=== PATIENT | female | born 1970 | race Caucasian/White ===

== ENCOUNTER 2018-05-13 06:28 | Day surgery (SDC) | payer OTHER ==
--- NOTE | 2018-05-11 14:47 | HP ---
DATE OF SURGERY: 05/13/2018 ADMISSION DIAGNOSIS: Symptomatic cholelithiasis. ANTICIPATED PROCEDURE: Laparoscopic cholecystectomy. HISTORY OF PRESENT ILLNESS: The patient has upper abdominal pain. Ultrasound positive. Seen and examined. Procedure discussed in detail and wished to proceed. PAST MEDICAL HISTORY: ALLERGIES: NONE. MEDICATIONS: Premarin, Effexor, Provigil, Plaquenil, piroxicam, Metformin. PAST SURGICAL HISTORY: Hysterectomy 2011. SOCIAL HISTORY: Half pack per day. ETOH negative. FAMILY HISTORY: Hypothyroidism, thyroid cancer, glaucoma, obesity, hypertension. REVIEW OF SYSTEMS: Hypothyroidism. Sleep apnea. PHYSICAL EXAMINATION: VITAL SIGNS: Normal. CHEST: Clear. COR: Regular. ABDOMEN: No palpable organomegaly or mass. IMPRESSION: Symptomatic cholelithiasis. PLAN: Laparoscopic cholecystectomy.
[2018-05-13] MEDS ORDERED: BRIDION 200MG/2ML IV ONE (06:29)
[2018-05-13] MEDS ORDERED: DIPRIVAN 200 MG/20 ML IV ONE (06:29)
[2018-05-13] MEDS ORDERED: MORPHINE SULFATE 10 MG/ML IV ONE (06:29)
[2018-05-13] MEDS ORDERED: SUBLIMAZE 250 MCG/5 ML IV ONE (06:29)
[2018-05-13] MEDS ORDERED: Quelicin Fliptop 200 MG/10 ML IV ONE (06:29)
[2018-05-13] MEDS ORDERED: Versed 2 MG/2 ML Injection IV ONE (06:29)
[2018-05-13] MEDS ORDERED: TORAdol 30 mg Injection IV ONE (06:29)
[2018-05-13] MEDS ORDERED: Zemuron 100 MG/10 ML IV ONE (06:29)
[2018-05-13] MEDS ORDERED: Lactated Ringers 1,000 ML IV SCH (06:30)
[2018-05-13] MEDS ORDERED: MEFOXIN 2 GM PREMIX** 2 GM/50 ML ML IV ONE (06:31)
[2018-05-13] MEDS ORDERED: Lactated Ringers 1,000 ML IV ONE ×2 (06:31→07:26)
[2018-05-13] MEDS ORDERED: MEFOXIN 2 GM PREMIX** 2 GM/50 ML ML IV SCH (07:00)
[2018-05-13] MEDS ORDERED: Sensorcaine 0.25% 10 ML ONE (07:25)
[2018-05-13] MEDS ORDERED: SUBLIMAZE 100 MCG/2 ML ONE (10:12)
[2018-05-13] MEDS ORDERED: MORPHINE SULFATE 4 MG INJ IV PRN (10:53)
[2018-05-13 11:34] VITALS: O2SAT 92
[2018-05-13 11:55] VITALS: BP 146/87; PULSE 76
--- NOTE | 2018-05-14 07:57 | OP ---
SURGERY DATE/TIME: 05/13/2018 0848 PREOPERATIVE DIAGNOSIS: Symptomatic cholelithiasis. POSTOPERATIVE DIAGNOSIS: Symptomatic cholelithiasis. PROCEDURE: Laparoscopic cholecystectomy. SURGEON: Dr. Louis. ANESTHESIA: General endotracheal tube - Trevin Singer CRNA. COMPLICATIONS: None. CONDITION: Stable. INDICATIONS: A patient with upper abdominal pain, ultrasound positive. Seen and examined. Procedure discussed in detail and wished to proceed. DESCRIPTION OF PROCEDURE AND FINDINGS: Taken to surgery. General anesthetic, routine prep and drape. Time out performed. Veress needle inserted about 1.5 inch above the umbilicus. Fairly large field. Three additional ports. Good visualization. She was markedly obese. Cystic artery defined and triply clipped. Cystic artery triply clipped. The gallbladder rolled out of gallbladder fossa. Gallbladder delivered down the umbilical port. It was necessary to take the stones out. There were a lot of large stones. Incision was distended some and the gallbladder delivered. The field was dry. It was closed with 3 sutures #0 Vicryl with hole closure device this was solid and was air tight. CO2 exsufflated. Skin closed with selene. Sterile dressing applied. The patient tolerated the procedure satisfactorily.
== END 2018-05-13 12:17 | disposition home or self-care (01) ==
LOC: SDC 06:28
PROVIDERS: ATTEND Surgery
DX: K80.20 Calculus of gallbladder without cholecystitis without obstruction (principal); E11.9 Type 2 diabetes mellitus without complications; Z79.4 Long term (current) use of insulin; G47.30 Sleep apnea, unspecified; E03.9 Hypothyroidism, unspecified; Z79.899 Other long term (current) drug therapy; Z80.8 Family history of malignant neoplasm of other organs or systems
CPT/HCPCS: 82962; 88304; J0330; J0694; J1885; J2250; J2270; J2704; J3010

== ENCOUNTER 2023-09-23 11:15 | Observation (INO) | payer OTHER ==
--- NOTE | 2023-09-23 11:38 | ERPHSYRPT ---
- History of Present Illness Time Seen by Provider: 09/23/23 11:38 Source: patient, family Exam Limitations: no limitations Patient Subjective Stated Complaint: ear infection dx thursday, placed on antibiotics. fever since thursday. shortness of breath today. Triage Nursing Assessment: . Physician History: This is an obese 53-year-old white female patient of Dr. Fragoso who presents with shortness of breath, cough and fever as well as headache arthralgias and myalgias. Patient was diagnosed with bilateral ear infections and placed on cefdinir. Today, she started having worsening shortness of breath and cough. She denies chest pain. Patient did take COVID test at home which were negative. Patient has a history of hyperlipidemia, hypertension, gastroesophageal reflux disease, diabetes, hypothyroidism, Sjorgens, COPD/asthma. Timing/Duration: worse Severity of Dyspnea-Max: moderate Severity of Dyspnea-Current: moderate Possible Cause: occasional episodes Modifying Factors: Improves With: activity, coughing Associated Symptoms: cough, No chest pain/discomfort Allergies/Adverse Reactions: No Known Drug Allergies Allergy (Verified 05/13/18 07:01) Home Medications: Metformin HCl 1000 mg [Glucophage 1000 MG] 1,000 mg PO DAILY 04/18/13 [History] Estrogens,Conjugated [Premarin] 0.625 mg PO DAILY 05/05/18 [History] Hydroxychloroquine Sulfate [Plaquenil] 200 mg PO BID 05/05/18 [History] Levothyroxine Sodium [Synthroid] 137 mcg PO DAILY 05/05/18 [History] modafiniL [Provigil] 200 mg PO BID 05/05/18 [History] Bupropion HCl Xl 150 mg [Wellbutrin XL 150 MG] 1 tablet PO DAILY 09/23/23 [History] Ergocalciferol (Vitamin D2) [Vitamin D2] 1 tablet PO DAILY 09/23/23 [History] Esomeprazole Magnesium 20 mg PO DAILY 09/23/23 [History] Metoprolol Succinate 25 mg Xl* [Toprol-Xl 25MG Tablets] 25 mg PO DAILY 09/23/23 [History] Rosuvastatin Calcium 1 tablet PO DAILY 09/23/23 [History] Hx Tetanus, Diphtheria Vaccination/Date Given: Yes Hx Influenza Vaccination/Date Given: Yes Hx Pneumococcal Vaccination/Date Given: No Travel Risk - International Travel Have you traveled outside of the country in past 3 weeks: No - Emerging Infectious Disease Are you exhibiting symptoms associated with any current EIDs: Yes Symptoms: Fever, Headaches/Body Aches/ - Review of Systems Constitutional: No Symptoms Eyes: No Symptoms Ears, Nose, & Throat: No Symptoms Respiratory: Cough, Dyspnea Cardiac: No Symptoms Abdominal/Gastrointestinal: No Symptoms Genitourinary Symptoms: No Symptoms Musculoskeletal: Arthralgias, Myalgias Skin: No Symptoms Neurological: No Symptoms Psychological: No Symptoms Endocrine: No Symptoms Hematologic/Lymphatic: No Symptoms Immunological/Allergic: No Symptoms All Other Systems: Reviewed and Negative - Past Medical History Pertinent Past Medical History: Yes Neurological History: No Pertinent History ENT History: No Pertinent History Cardiac History: No Pertinent History Respiratory History: Sleep Apnea, COPD, Asthma Endocrine Medical History: No Pertinent History Musculoskeletal History: Osteoarthritis GI Medical History: No Pertinent History History: No Pertinent History Psycho-Social History: No Pertinent History Female Reproductive Disorders: Fibroids, Abnormal Uterine Bleeding Other Medical History: Sjorgrens auto immune disorder - Past Surgical History Past Surgical History: Yes Neuro Surgical History: No Pertinent History Cardiac: No Pertinent History Respiratory: No Pertinent History Gastrointestinal: No Pertinent History Genitourinary: No Pertinent History Musculoskeletal: Orthopedic Surgery Female Surgical History: Hysterectomy, Other Other Surgical History: left carpel tunnel surgery 2014,Dx Lap 2011,hyster.2011, right foot stress fx with screws placed 2015 - Female History Hx Last Menstrual Period: hysterectomy Hx Now: No - Social History Smoking Status: Current every day smoker How long have you smoked: 20 Y Exposure to second hand smoke: No Drug Use: none Patient Lives Alone: No - Social Determinants of Health Will the patient participate in the screening: Yes Do you worry about a steady place to live?: No Do you have any problems with any of the following?: No known problems In the past 12 months,have you had to go without utilities?: No Transportation Issues: No Has anyone in your support network made you feel unsafe?: No Have you or anyone in your house had to go without enough: No - Nursing Vital Signs Nursing Vital Signs: Initial Vital Signs Temperature 103 F 09/23/23 11:18 Pulse Rate 98 H 09/23/23 11:18 Respiratory Rate 14 09/23/23 11:18 Blood Pressure 127/82 09/23/23 11:18 O2 Sat by Pulse Oximetry 91 L 09/23/23 11:18 Pain Scale Pain Intensity 0 - Physical Exam General Appearance: no apparent distress, alert, obese Eye Exam: PERRL/EOMI, eyes nml inspection Ears, Nose, Throat Exam: hearing grossly normal, normal ENT inspection, normal pharynx Neck Exam: normal inspection, non-tender, supple, full range of motion Respiratory Exam: normal breath sounds, lungs clear, airway intact, No chest tenderness, No respiratory distress Cardiovascular/Chest Exam: normal heart sounds, regular rate/rhythm Abdominal/Gastrointestinal Exam: soft, normal bowel sounds, No tenderness Rectal Exam: not done Extremity Exam: non-tender, normal range of motion, normal inspection, normal capillary refill, no calf tenderness, no pedal edema, pelvis stable Neurologic Exam: alert, oriented x 3, cooperative, bottle caser II-XII nml as tested, normal mood/affect, nml cerebellar function, nml station & gait, sensation nml Skin Exam: normal color, warm, dry Lymphatic Exam: No adenopathy SpO2 Interpretation: borderline oxygenation SpO2: 94 O2 Delivery: Room Air - Course Nursing assessment & vital signs reviewed: Yes EKG Interpreted by Me: RATE (98), Sinus Rhythm, NORMAL AXIS, NORMAL INTERVALS, NORMAL QRS, Other (No acute ischemic changes present.) Ordered Tests: Active Orders 24 hr Category Date Time Status EKG-ER Only STAT Care 09/23/23 11:40 Active IV Insertion STAT Care 09/23/23 11:40 Active Pulse Oximetry (ED) STAT Care 09/23/23 11:40 Active CHEST 1 VIEW (PORTABLE) Stat Exams 09/23/23 11:40 Completed CHEST WITH CONTRAST [CT] Stat Exams 09/23/23 12:49 Completed BLOOD CULTURE Stat Lab 09/23/23 11:40 Ordered CBC W DIFF Stat Lab 09/23/23 11:59 Completed CMP Stat Lab 09/23/23 11:59 Completed D-DIMER QUANTITATIVE Stat Lab 09/23/23 11:59 Completed Lactic Acid Stat Lab 09/23/23 11:40 Completed MAGNESIUM Stat Lab 09/23/23 11:59 Completed NT PRO BNPII Stat Lab 09/23/23 11:59 Completed PROTIME WITH INR Stat Lab 09/23/23 11:59 Completed TROPONIN Q4H Lab 09/23/23 11:45 Completed TROPONIN Q4H Lab 09/23/23 15:45 Ordered TROPONIN Q4H Lab 09/23/23 19:45 Ordered Respiratory Therapy Assessment DAILY RT 09/23/23 12:22 Active Medication Summary Discontinued Medications Generic Name Dose Route Start Last Admin Trade Name Griselda PRN Reason Stop Dose Admin Acetaminophen 650 mg 09/23/23 12:53 09/23/23 13:04 Acetaminophen 325 Mg Tablet PO 09/23/23 12:54 650 mg STAT ONE Administration Acetaminophen Confirm 09/23/23 12:59 Acetaminophen 325 Mg Tablet Administered 09/23/23 13:00 Dose 650 mg .ROUTE .STK-MED ONE Albuterol/Ipratropium Confirm 09/23/23 12:17 Ipratropium/Albuterol Sulfate 3 Ml Ampul.Neb Administered 09/23/23 12:18 Dose 3 ml IH .STK-MED ONE Albuterol/Ipratropium 3 ml 09/23/23 12:22 09/23/23 12:25 Ipratropium/Albuterol Sulfate 3 Ml Ampul.Neb IH 09/23/23 12:23 3 ml STAT ONE Administration Methylprednisolone Sodium 0 mg 09/23/23 12:53 09/23/23 13:05 Succinate 125 mg/ Sterile IV 09/23/23 12:54 125 mg Water 2 ml STAT ONE Administration Sodium Chloride 1,000 mls @ 999 mls/hr 09/23/23 12:39 09/23/23 14:12 Sodium Chloride 0.9% 1000 Ml IV 09/23/23 13:39 Infused .Q1H1M STA Infusion Levofloxacin/Dextrose 500 mg in 100 mls @ 100 mls/hr 09/23/23 12:40 09/23/23 14:12 Levofloxacin 500mg/100ml D5w IV 09/23/23 13:39 Infused STAT STA Infusion Sodium Chloride Confirm 09/23/23 12:43 Sodium Chloride 0.9% 1000 Ml Administered 09/23/23 12:44 Dose 1,000 mls @ ud .ROUTE .STK-MED ONE Levofloxacin/Dextrose Confirm 09/23/23 12:43 Levofloxacin 500mg/100ml D5w Administered 09/23/23 12:44 Dose 500 mg in 100 mls @ ud IV .STK-MED ONE Ibuprofen 600 mg 09/23/23 12:53 09/23/23 13:02 Ibuprofen 600 Mg Tablet PO 09/23/23 12:54 Not Given STAT ONE Ibuprofen Confirm 09/23/23 12:59 Ibuprofen 600 Mg Tablet Administered 09/23/23 13:00 Dose 600 mg .ROUTE .STK-MED ONE Methylprednisolone Sodium Succinate Confirm 09/23/23 12:59 Methylprednis Sod Succ 125 Mg/2 Ml Vial Administered 09/23/23 13:00 Dose 125 mg .ROUTE .STK-MED ONE Sterile Water Confirm 09/23/23 12:59 Water For Injection,Sterile 10 Ml Vial Administered 09/23/23 13:00 Dose 10 ml IJ .STK-MED ONE Lab/Rad Data: Laboratory Result Diagrams 09/23/23 11:59 09/23/23 11:59 Laboratory Results 09/23/23 09/23/23 09/23/23 Range/Units 12:40 11:59 11:59 WBC (3.98-10.04) x10^3/uL RBC (3.93-5.22) x10^6/uL Hgb (11.2-15.7) g/dL Hct (34.1-44.9) % MCV (79.4-94.8) fL MCH (25.6-32.2) pg MCHC (32.2-35.5) g/dL RDW (11.7-14.4) % Plt Count (182-369) x10^3/uL MPV (9.4-12.3) fL Gran % (34.0-71.1) % Immature Gran % (Auto) (0.001-0.429) % Nucleat RBC Rel Count (0.00-0.2) % Eos # (Auto) (0.04-0.36) x10^3/uL Immature Gran # (Auto) (0.001-0.031) x10^3u/L Absolute Lymphs (auto) (1.18-3.74) x10^3/uL Absolute Monos (auto) (0.24-0.86) x10^3/uL Absolute Nucleated RBC (0.00-0.012) x10^3u/L Lymphocytes % (19.3-51.7) % Monocytes % (4.7-12.5) % Eosinophils % (0.7-5.8) % Basophils % (0.1-1.2) % Absolute Granulocytes (1.56-6.13) x10^3/uL Basophils # (0.01-0.08) x10^3/uL PT 11.2 (9.4-12.5) SECONDS INR 1.03 (0.8-3.0) D-Dimer 1.44 H* (0.0-0.50) mg/L Sodium 134 L (135-145) mmol/L Potassium 3.8 (3.5-5.1) mmol/L Chloride 105 (98-107) mmol/L Carbon Dioxide 19 L (22-30) mmol/L Anion Gap 14.6 (5-15) MEQ/L BUN 24 H (7-17) mg/dL Creatinine 1.55 H (0.52-1.04) mg/dL Estimated GFR 40.1 ML/MIN Glucose 126 H (74-106) mg/dL Lactic Acid (0.4-2.0) Calcium 8.8 (8.4-10.2) mg/dL Magnesium 1.9 (1.6-2.3) mg/dL Total Bilirubin 0.40 (0.2-1.3) mg/dL AST 31 (14-36) U/L ALT 19 (0-35) U/L Alkaline Phosphatase 98 (38-126) U/L Troponin I (0.000-0.033) ng/mL NT-Pro-B Natriuret Pep 238 (<300) pg/mL Serum Total Protein 7.1 (6.3-8.2) g/dL Albumin 3.8 (3.5-5.0) g/dL Influenza Type A Ag NEGATIVE (NEGATIVE) Influenza Type B Ag NEGATIVE (NEGATIVE) RSV (PCR) NEGATIVE (NEGATIVE) SARS-CoV-2 (PCR) NEGATIVE (NEGATIVE) 09/23/23 09/23/23 09/23/23 Range/Units 11:59 11:45 11:40 WBC 10.9 H (3.98-10.04) x10^3/uL RBC 4.26 (3.93-5.22) x10^6/uL Hgb 11.9 (11.2-15.7) g/dL Hct 36.7 (34.1-44.9) % MCV 86.2 (79.4-94.8) fL MCH 27.9 (25.6-32.2) pg MCHC 32.4 (32.2-35.5) g/dL RDW 13.9 (11.7-14.4) % Plt Count 281 (182-369) x10^3/uL MPV 9.6 (9.4-12.3) fL Gran % 88.8 H (34.0-71.1) % Immature Gran % (Auto) 1.5 H (0.001-0.429) % Nucleat RBC Rel Count 0.0 (0.00-0.2) % Eos # (Auto) 0 L (0.04-0.36) x10^3/uL Immature Gran # (Auto) 0.16 H (0.001-0.031) x10^3u/L Absolute Lymphs (auto) 0.50 L (1.18-3.74) x10^3/uL Absolute Monos (auto) 0.51 (0.24-0.86) x10^3/uL Absolute Nucleated RBC 0.00 (0.00-0.012) x10^3u/L Lymphocytes % 4.6 L (19.3-51.7) % Monocytes % 4.7 (4.7-12.5) % Eosinophils % 0.0 L (0.7-5.8) % Basophils % 0.4 (0.1-1.2) % Absolute Granulocytes 9.72 H (1.56-6.13) x10^3/uL Basophils # 0.04 (0.01-0.08) x10^3/uL PT (9.4-12.5) SECONDS INR (0.8-3.0) D-Dimer (0.0-0.50) mg/L Sodium (135-145) mmol/L Potassium (3.5-5.1) mmol/L Chloride (98-107) mmol/L Carbon Dioxide (22-30) mmol/L Anion Gap (5-15) MEQ/L BUN (7-17) mg/dL Creatinine (0.52-1.04) mg/dL Estimated GFR ML/MIN Glucose (74-106) mg/dL Lactic Acid 1.3 (0.4-2.0) Calcium (8.4-10.2) mg/dL Magnesium (1.6-2.3) mg/dL Total Bilirubin (0.2-1.3) mg/dL AST (14-36) U/L ALT (0-35) U/L Alkaline Phosphatase (38-126) U/L Troponin I < 0.012 (0.000-0.033) ng/mL NT-Pro-B Natriuret Pep (<300) pg/mL Serum Total Protein (6.3-8.2) g/dL Albumin (3.5-5.0) g/dL Influenza Type A Ag (NEGATIVE) Influenza Type B Ag (NEGATIVE) RSV (PCR) (NEGATIVE) SARS-CoV-2 (PCR) (NEGATIVE) - Progress Progress: improved, re-examined Air Movement: good Progress Note: 09/23/23 12:22 Chest x-ray was interpreted by the radiologist and I reviewed the impression. Impression states new bilateral patchy airspace disease right side greater than left. 09/23/23 12:46 My medical decision making and the assignment of moderate complexity to this patient's medical issue today is based on review of the patient's past medical history, review the patient's medication list, review patient drug allergy list, history present illness and physical findings on examination. The workup in this patient includes placement of intravenous line, CBC, CMP, blood cultures, RT evaluation management, BNP, D-dimer level, twelve-lead EKG, chest x-ray. Differential diagnosis includes but is not limited to pneumonia, viral illness, myocardial infarction, pleural effusions, pulmonary embolism, arrhythmia 09/23/23 14:20 Based on the laboratory data which I interpreted, the patient does not have an acute, emergent medical issue. CT scan of the chest with contrast shows no obvious pulmonary embolus. However there is some optimal study based on suboptimal opacification. There is diffuse bilateral patchy consolidating airspace disease with tiny right effusion present. 09/23/23 15:00 I spoke with telehospitalist Dr. Gupta. I reviewed the patient history, chief complaint, physical exam findings, and workup results with her. She agrees to place this patient in observation. Blood Culture(s) Obtained: Yes Antibiotics given: Yes Counseled pt/family regarding: lab results, diagnosis, rad results Medical Desision Making - Discussion of managment Care discussed with:: hospitalist Reviewed:: Test results, Need for additional workup Agreed on:: place in obs - Diagnostic Testing Diagnostic test were ordered, analyzed, and reviewed by me: Yes Radiological Interpretation: Reviewed by me, Teleradiologist Report - Risk of complications The pt has a high risk of morbidity or mortality based on: Decision regarding hospitilization or escalation of hosp level of care - Departure Departure Disposition: Observation Clinical Impression: Pneumonia, Hypoxia, Fever, Sepsis Condition: Fair Critical Care Time: Yes Critical Care Time(excluding separately billable procedures): Critical 30-74 mins (40) Referrals: ANDREW FRAGOSO MD [Primary Care Provider] - Follow up/PCP as directed
--- NOTE | 2023-09-23 12:02 | XRAY ---
Indication: Short of breath. Comparison: September 18, 2017 Portable chest demonstrates new bilateral patchy airspace disease, right greater than left. Heart not enlarged. Bony thorax intact.
[2023-09-23 12:08] LABS: Absolute Neutrophil Ct (ANC) 9.72 x10^3/uL (1.56-6.13); BASOPHIL % 0.4 % (0.1-1.2); Basophil (Absolute #) 0.04 x10^3/uL (0.01-0.08); Eosinophil (Absolute #) 0 x10^3/uL (0.04-0.36); Hematocrit 36.7 % (34.1-44.9); Hemoglobin 11.9 g/dL (11.2-15.7); IMMATURE GRAN # 0.16 x10^3u/L (0.001-0.031); IMMATURE GRAN % 1.5 % (0.001-0.429); Lymphocytes % 4.6 % (19.3-51.7); Mean Cell Volume 86.2 fL (79.4-94.8); Mean Corpuscular Hemoglobin 27.9 pg (25.6-32.2); Mean Corpuscular Hgb Concent. 32.4 g/dL (32.2-35.5); Mean Platelet Volume 9.6 fL (9.4-12.3); Monocyte (Absolute #) 0.51 x10^3/uL (0.24-0.86); Monocytes % 4.7 % (4.7-12.5); Neutrophil % 88.8 % (34.0-71.1); Platelet Count 281 x10^3/uL (182-369); Red Blood Count 4.26 x10^6/uL (3.93-5.22); Red Cell Distribution Width 13.9 % (11.7-14.4); White Blood Count 10.9 x10^3/uL (3.98-10.04)
[2023-09-23] MEDS ORDERED: DUONEB 0.5-3 MG/3 ml Neb IH ONE (12:17)
[2023-09-23] MEDS: DUONEB 0.5-3 MG/3 ml Neb IH ONE (12:25)
[2023-09-23 12:28] LABS: ALBUMIN 3.8 g/dL (3.5-5.0); ANION GAP 14.6 MEQ/L (5-15); BILIRUBIN,TOTAL 0.4 mg/dL (0.2-1.3); Calcium 8.8 mg/dL (8.4-10.2); Creatinine 1 1.55 mg/dL (0.52-1.04); EST GLOMERULAR FILTRATION RATE 40.1 ML/MIN; MAGNESIUM 1.9 mg/dL (1.6-2.3); Potassium 3.8 mmol/L (3.5-5.1); Total Protein 7.1 g/dL (6.3-8.2)
[2023-09-23 12:39] LABS: INR 1.03 (0.8-3.0); PROTIME 11.2 SECONDS (9.4-12.5)
[2023-09-23 12:42] LABS: D-DIMER QUANTITATIVE 1.44 mg/L (0.0-0.50)
[2023-09-23] MEDS ORDERED: Levofloxacin 500MG/100ML D5W 500 MG/100 ML BAG IV ONE (12:43)
[2023-09-23] MEDS ORDERED: Sodium Chloride 0.9% 1000 ML 1,000 ML ONE (12:43)
[2023-09-23] MEDS: Sodium Chloride 0.9% 1000 ML 1,000 ML IV STA (12:48)
[2023-09-23] MEDS: Levofloxacin 500MG/100ML D5W 500 MG/100 ML BAG IV STA (12:50)
[2023-09-23] MEDS ORDERED: MOTRIN 600 MG ONE (12:59)
[2023-09-23] MEDS ORDERED: solu-MEDROL ONE (12:59)
[2023-09-23] MEDS ORDERED: TYLENOL 325 MG ONE (12:59)
[2023-09-23] MEDS ORDERED: Sterile H2O 10 ml IJ ONE (12:59)
[2023-09-23] MEDS: MOTRIN 600 MG PO ONE (13:02)
[2023-09-23] MEDS: TYLENOL 325 MG PO ONE (13:04)
[2023-09-23] MEDS: solu-MEDROL 125 MG, Sterile H2O 10 ml 2 ML IV ONE (13:05)
[2023-09-23 13:33] LABS: INFLUENZA A NEGATIVE (NEGATIVE); INFLUENZA B NEGATIVE (NEGATIVE); RESPIRATORY SYNCTIAL VIRUS NEGATIVE (NEGATIVE); SARS-CoV-2 Xpert Express NEGATIVE (NEGATIVE)
--- NOTE | 2023-09-23 14:02 | XRAY ---
Indication: Hypoxia. Short of breath. Elevated d-dimer. Multiple contiguous axial images obtained through the chest using 100 cc Isovue 370 contrast and PE protocol. Comparison: None Suboptimal opacification pulmonary arteries and respiration artifact limits evaluation for pulmonary embers. No obvious pulmonary embolus. Heart not enlarged. Aorta is normal in course and caliber. Tiny subcarinal and left infrahilar calcified node. No pathologic mediastinal/hilar lymphadenopathy. Small hiatal hernia. Lungs demonstrates diffuse bilateral patchy consolidating airspace disease with tiny right effusion. Bony thorax intact with mild degenerative changes throughout the spine. Limited upper abdomen demonstrates fatty liver, 13 cm splenomegaly, and cholecystectomy clips. Impression: 1. Pulmonary embolus evaluation limited due to suboptimal contrast opacification and respiration artifact. No obvious pulmonary embolus. 2. Diffuse bilateral patchy consolidating airspace disease with tiny right effusion. 3. Incidental tiny including hiatal hernia, degenerative spondylosis, fatty liver, splenomegaly, and old granulomatous disease.
[2023-09-23] MEDS ORDERED: Zofran 4 MG/2 ML VIAL IV PRN (15:29)
[2023-09-23 15:38] LABS: Slide Review 1 YES
--- NOTE | 2023-09-23 16:01 | PCM.HP ---
<LARRY BURCIAGA - Last Filed: 09/23/23 15:54> History of Present Illness - Chief Complaint Chief Complaint: Dyspnea, fever, cough Date: 09/23/23 History of Present Illness: is a 53 year old female with a pmhx of MINDA, HLD, HTN, GERD, hypothyroid, COPD/asthma, Aflutter (metoprolol), insulin resistance, and Sjorgrens who presented to ED 09/23/23 with complaints of progressive dyspnea and cough. Patient reports fever with TMax of 103 since this past Thursday, weakness, and a non-productive cough. She was seen as OP on 09/21/23 and was diagnosed with a bilateral ear infection and placed on cefdinir. Patient states she was prompted to report to the ED today when she was unable to resolve her fever, was short of breath with exertion, and became so weak she was having difficulty performing ADL's. In ED, patient tachycardic, tachypneic, febrile with temp at 103, and spo2 at 91% on RA. Chest CT demonstrates diffuse bilateral patchy consolidating airspace disease with a tiny right effusion. No PE. Lab findings remarkable for mild leukocytosis with WBC at 10.9, Ddimer at 1.44 (no PE on CT), mild hyponatremia at 134, Co2 at 19, TUAN with creat at 1.55 (baseline 1.3). Received levofloxacin, solumedrol, DuoNebs, and fluid bolus in ED. - Review of Systems Constitutional: Fever, Chills, Weakness Eyes: No Symptoms Ears, Nose, & Throat: Ear Pain Respiratory: Cough, Short Of Breath Cardiac: No Symptoms Abdominal/Gastrointestinal: Appetite Changes (poor appetite) Genitourinary Symptoms: No Symptoms Musculoskeletal: No Symptoms Skin: No Symptoms Neurological: No Symptoms Psychological: No Symptoms Endocrine: No Symptoms Hematologic/Lymphatic: No Symptoms Immunological/Allergic: No Symptoms Medications & Allergies Home Medications: Home Medication List Metformin HCl 1000 mg [Glucophage 1000 MG] 1,000 mg PO DAILY 04/18/13 [History Confirmed 09/23/23] Estrogens,Conjugated [Premarin] 0.625 mg PO DAILY 05/05/18 [History Confirmed 09/23/23] Hydroxychloroquine Sulfate [Plaquenil] 200 mg PO BID 05/05/18 [History Confirmed 09/23/23] Levothyroxine Sodium [Synthroid] 137 mcg PO DAILY 05/05/18 [History Confirmed 09/23/23] modafiniL [Provigil] 200 mg PO BID 05/05/18 [History Confirmed 09/23/23] Bupropion HCl Xl 150 mg [Wellbutrin XL 150 MG] 150 mg PO DAILY 09/23/23 [History Confirmed 09/23/23] Cefdinir 300 mg PO BID 09/23/23 [History Confirmed 09/23/23] Diclofenac Sodium [Voltaren Arthritis Pain] 1 applic TOP DAILY 09/23/23 [History Confirmed 09/23/23] Ergocalciferol (Vitamin D2) [Vitamin D2] 50,000 units PO WEEKLY 09/23/23 [History Confirmed 09/23/23] Esomeprazole Magnesium 20 mg PO DAILY 09/23/23 [History Confirmed 09/23/23] Metoprolol Succinate 25 mg Xl* [Toprol-Xl 25MG Tablets] 25 mg PO DAILY 09/23/23 [History Confirmed 09/23/23] Rosuvastatin Calcium 10 mg PO DAILY 09/23/23 [History Confirmed 09/23/23] Allergies/Adverse Reactions: Allergies Allergy/AdvReac Type Severity Reaction Status Date / Time No Known Drug Allergies Allergy Verified 05/13/18 07:01 - Past Medical History Past Medical History: Yes Neurological History: No Pertinent History ENT History: No Pertinent History Cardiac History: High Cholesterol Respiratory History: Sleep Apnea, COPD, Asthma Endocrine Medical History: No Pertinent History Musculoskelatal History: Osteoarthritis GI Medical History: No Pertinent History History: No Pertinent History Pyscho-Social History: No Pertinent History Reproductive Disorders: Fibroids, Abnormal Uterine Bleeding Comment: Sjorgrens auto immune disorder, insulin resistant - Female History Hx Last Menstrual Period: hysterectomy Are you now?: No - Past Surgical History Past Surgical History: Yes Neuro Surgical History: No Pertinent History Cardiac History: No Pertinent History Respiratory Surgery: No Pertinent History GI Surgical History: No Pertinent History Genitourinary Surgical Hx: No Pertinent History Musculskeletal Surgical Hx: Orthopedic Surgery Female Surgical History: Hysterectomy, Other Other Surgical History: left carpel tunnel surgery 2014,Dx Lap 2011,hyster.[email or web address], right foot stress fx with screws placed 2015 - Social History Smoking Status: Current every day smoker How long have you smoked: 20 Y Exposure to second hand smoke: No Alcohol: Rarely Drug Use: none - Social Determinants of Health Will the patient participate in the screening: Yes Do you worry about a steady place to live?: No Do you have any problems with any of the following?: No known problems In the past 12 months,have you had to go without utilities?: No Have you or anyone in your house had to go without enough: No Transportation Issues: No Has anyone in your support network made you feel unsafe?: No - Physical Exam Vital Signs: Vital Signs - 24 hr Temp Pulse Resp BP BP Pulse Ox 09/23/23 15:37 99.6 F 89 18 105/55 92 L 09/23/23 15:05 94 L 09/23/23 14:01 101/55 95 09/23/23 14:00 94 L 09/23/23 13:50 93 L 09/23/23 13:45 99.4 F 95 09/23/23 13:01 96 H 27 H 135/28 99 09/23/23 13:00 95 H 24 97 09/23/23 12:50 93 H 20 96 09/23/23 12:40 96 H 23 94 L 09/23/23 12:33 96 H 23 93 L 09/23/23 12:22 92 H 28 H 94 L 09/23/23 12:09 91 H 25 H 136/66 95 09/23/23 12:00 92 H 28 H 94 L 09/23/23 11:53 93 H 26 H 94 L 09/23/23 11:42 91 L 09/23/23 11:30 93 H 27 H 120/78 95 09/23/23 11:18 103 F 98 H 18 127/82 94 L General Appearance: no apparent distress Neurologic Exam: alert, oriented x 3, cooperative Eye Exam: PERRL/EOMI Ears, Nose, Throat Exam: normal ENT inspection Neck Exam: normal inspection Respiratory Exam: crackles/rales Cardiovascular Exam: regular rate/rhythm, normal heart sounds Gastrointestinal/Abdomen Exam: normal bowel sounds Pelvic Exam: not done Rectal Exam: deferred Back Exam: normal inspection Extremity Exam: normal inspection Skin Exam: normal color Results - Labs Lab/Micro Results: Lab Results-Last 24 Hours 09/23/23 09/23/23 09/23/23 Range/Units 11:40 11:45 11:59 WBC 10.9 H (3.98-10.04) x10^3/uL RBC 4.26 (3.93-5.22) x10^6/uL Hgb 11.9 (11.2-15.7) g/dL Hct 36.7 (34.1-44.9) % MCV 86.2 (79.4-94.8) fL MCH 27.9 (25.6-32.2) pg MCHC 32.4 (32.2-35.5) g/dL RDW 13.9 (11.7-14.4) % Plt Count 281 (182-369) x10^3/uL MPV 9.6 (9.4-12.3) fL Gran % 88.8 H (34.0-71.1) % Immature Gran % (Auto) 1.5 H (0.001-0.429) % Nucleat RBC Rel Count 0.0 (0.00-0.2) % Eos # (Auto) 0 L (0.04-0.36) x10^3/uL Immature Gran # (Auto) 0.16 H (0.001-0.031) x10^3u/L Absolute Lymphs (auto) 0.50 L (1.18-3.74) x10^3/uL Absolute Monos (auto) 0.51 (0.24-0.86) x10^3/uL Absolute Nucleated RBC 0.00 (0.00-0.012) x10^3u/L Lymphocytes % 4.6 L (19.3-51.7) % Monocytes % 4.7 (4.7-12.5) % Eosinophils % 0.0 L (0.7-5.8) % Basophils % 0.4 (0.1-1.2) % Absolute Granulocytes 9.72 H (1.56-6.13) x10^3/uL Basophils # 0.04 (0.01-0.08) x10^3/uL PT (9.4-12.5) SECONDS INR (0.8-3.0) D-Dimer (0.0-0.50) mg/L Sodium (135-145) mmol/L Potassium (3.5-5.1) mmol/L Chloride (98-107) mmol/L Carbon Dioxide (22-30) mmol/L Anion Gap (5-15) MEQ/L BUN (7-17) mg/dL Creatinine (0.52-1.04) mg/dL Estimated GFR ML/MIN Glucose (74-106) mg/dL Lactic Acid 1.3 (0.4-2.0) Calcium (8.4-10.2) mg/dL Magnesium (1.6-2.3) mg/dL Total Bilirubin (0.2-1.3) mg/dL AST (14-36) U/L ALT (0-35) U/L Alkaline Phosphatase (38-126) U/L Troponin I < 0.012 (0.000-0.033) ng/mL NT-Pro-B Natriuret Pep (<300) pg/mL Serum Total Protein (6.3-8.2) g/dL Albumin (3.5-5.0) g/dL Influenza Type A Ag (NEGATIVE) Influenza Type B Ag (NEGATIVE) RSV (PCR) (NEGATIVE) SARS-CoV-2 (PCR) (NEGATIVE) Slides for Path Review YES 09/23/23 09/23/23 09/23/23 Range/Units 11:59 11:59 12:40 WBC (3.98-10.04) x10^3/uL RBC (3.93-5.22) x10^6/uL Hgb (11.2-15.7) g/dL Hct (34.1-44.9) % MCV (79.4-94.8) fL MCH (25.6-32.2) pg MCHC (32.2-35.5) g/dL RDW (11.7-14.4) % Plt Count (182-369) x10^3/uL MPV (9.4-12.3) fL Gran % (34.0-71.1) % Immature Gran % (Auto) (0.001-0.429) % Nucleat RBC Rel Count (0.00-0.2) % Eos # (Auto) (0.04-0.36) x10^3/uL Immature Gran # (Auto) (0.001-0.031) x10^3u/L Absolute Lymphs (auto) (1.18-3.74) x10^3/uL Absolute Monos (auto) (0.24-0.86) x10^3/uL Absolute Nucleated RBC (0.00-0.012) x10^3u/L Lymphocytes % (19.3-51.7) % Monocytes % (4.7-12.5) % Eosinophils % (0.7-5.8) % Basophils % (0.1-1.2) % Absolute Granulocytes (1.56-6.13) x10^3/uL Basophils # (0.01-0.08) x10^3/uL PT 11.2 (9.4-12.5) SECONDS INR 1.03 (0.8-3.0) D-Dimer 1.44 H* (0.0-0.50) mg/L Sodium 134 L (135-145) mmol/L Potassium 3.8 (3.5-5.1) mmol/L Chloride 105 (98-107) mmol/L Carbon Dioxide 19 L (22-30) mmol/L Anion Gap 14.6 (5-15) MEQ/L BUN 24 H (7-17) mg/dL Creatinine 1.55 H (0.52-1.04) mg/dL Estimated GFR 40.1 ML/MIN Glucose 126 H (74-106) mg/dL Lactic Acid (0.4-2.0) Calcium 8.8 (8.4-10.2) mg/dL Magnesium 1.9 (1.6-2.3) mg/dL Total Bilirubin 0.40 (0.2-1.3) mg/dL AST 31 (14-36) U/L ALT 19 (0-35) U/L Alkaline Phosphatase 98 (38-126) U/L Troponin I (0.000-0.033) ng/mL NT-Pro-B Natriuret Pep 238 (<300) pg/mL Serum Total Protein 7.1 (6.3-8.2) g/dL Albumin 3.8 (3.5-5.0) g/dL Influenza Type A Ag NEGATIVE (NEGATIVE) Influenza Type B Ag NEGATIVE (NEGATIVE) RSV (PCR) NEGATIVE (NEGATIVE) SARS-CoV-2 (PCR) NEGATIVE (NEGATIVE) Slides for Path Review - Radiology Impressions Radiology Exams & Impressions: Radiology Procedures Category Date Time Status CHEST 1 VIEW (PORTABLE) Stat Exams 09/23/23 11:40 Completed CHEST WITH CONTRAST [CT] Stat Exams 09/23/23 12:49 Completed - Other Procedures and Tests Respiratory Therapy 09/23/23 15:29 EKG REPEAT IN AM Oxygen Nasal Cannula 2 lpm Respiratory Therapy Consult ONCE Assessment/Plan (1) Sepsis Current Visit: Yes Status: Acute Assessment & Plan: -Most likely multifactoral with recent otitis media and pneumonia- OP failure with cefdinir -Meets criteria with tachycardia, tachypnea, fever, and known source of infection -Received 1L fluid bolus in ED, LA WNL - will continue fluids at 125ml/hr -CT consistent with bilateral pneumonia -Levofloxacin started in ED, will continue with Zosyn -MRSA nasal swab - if positive add vancomycin -Supplemental oxygen with spo2 goal > 92% -PCT, UA -ABG if significant hypoxia/lethargy (2) Pneumonia Current Visit: Yes Status: Acute Assessment & Plan: - CT consistent with bilateral pneumonia -MRSA swab -supplemental oxygen with spo2 goal > 92% - on 2L now, baseline RA -sputum culture -Resp viral panel negative -bcult pending -Levaquin started in ED- OP failure with cefdinir- will continue with Zosyn Code(s): J18.9 - PNEUMONIA, UNSPECIFIED ORGANISM (3) Hyponatremia Current Visit: Yes Status: Acute Assessment & Plan: -Mild -IVF -continue to monitor renal/lytes daily Code(s): E87.1 - HYPO-OSMOLALITY AND HYPONATREMIA (4) Insulin resistance Current Visit: Yes Status: Acute Assessment & Plan: -On metformin - hold for now due to contrast CT, no DM Code(s): E88.819 - INSULIN RESISTANCE, UNSPECIFIED (5) Atrial flutter Current Visit: Yes Status: Acute Code(s): I48.92 - UNSPECIFIED ATRIAL FLUTTER (6) Acute on chronic renal failure Current Visit: Yes Status: Acute Assessment & Plan: -baseline creat around 1.3, today at 1.55 -continue IVF -Avoid nephrotoxic medications ALEJANDRA/ARB/NSAIDS -Monitor renal/lytes daily Code(s): N17.9 - ACUTE KIDNEY FAILURE, UNSPECIFIED; N18.9 - CHRONIC KIDNEY DISEASE, UNSPECIFIED (7) COPD exacerbation Current Visit: Yes Status: Acute Assessment & Plan: -RA at baseline -Supplemental oxygen as needed to maintain spo2 >92% -solumedrol -RT eval - Nebs/ INH -abx -ABG/BIPAP as needed Code(s): J44.1 - CHRONIC OBSTRUCTIVE PULMONARY DISEASE W (ACUTE) EXACERBATION (8) MINDA (obstructive sleep apnea) Current Visit: Yes Status: Acute Assessment & Plan: -continue CPAP Code(s): G47.33 - OBSTRUCTIVE SLEEP APNEA (ADULT) (PEDIATRIC) (9) HTN (hypertension) Current Visit: Yes Status: Acute Assessment & Plan: -stable - continue home meds, monitor closely for hypotension VTE: lovenox PPI: protonix Dispo: 1-2 days Code Status: Full code The entirety of this encounter was performed via Telemedicine" This visit was performed using real-time audio and video connection between my location and thepatients locationwith the assistance of a surrogateat the patients location. Written or verbal consent was obtained from the patient/guardian to perform this visit usingsynchrQuest Discoverytelemedicine technology. Any patient questions regarding the telemedicine interaction were answered. Code(s): I10 - ESSENTIAL (PRIMARY) HYPERTENSION Telemedicine Encounter - Telemedicine Encounter Telemedicine Encounter: The entirety of this encounter was performed via Telemedicine" <MANAS BARNARD - Last Filed: 09/23/23 23:03> History of Present Illness - Chief Complaint History of Present Illness: is a 53 year old female. - Physical Exam Vital Signs: Vital Signs - 24 hr Temp Pulse Resp BP BP Pulse Ox 09/23/23 20:00 96.6 F 77 17 114/62 93 L 09/23/23 19:51 74 16 94 L 09/23/23 15:44 99.6 F 89 20 105/55 92 L 09/23/23 15:37 99.6 F 89 18 105/55 92 L 09/23/23 15:05 94 L 09/23/23 14:01 101/55 95 09/23/23 14:00 94 L 09/23/23 13:50 93 L 09/23/23 13:45 99.4 F 95 09/23/23 13:01 96 H 27 H 135/28 99 09/23/23 13:00 95 H 24 97 09/23/23 12:50 93 H 20 96 09/23/23 12:40 96 H 23 94 L 09/23/23 12:33 96 H 23 93 L 09/23/23 12:22 92 H 28 H 94 L 09/23/23 12:09 91 H 25 H 136/66 95 09/23/23 12:00 92 H 28 H 94 L 09/23/23 11:53 93 H 26 H 94 L 09/23/23 11:42 91 L 09/23/23 11:30 93 H 27 H 120/78 95 09/23/23 11:18 103 F 98 H 18 127/82 94 L Results - Labs Lab/Micro Results: Lab Results-Last 24 Hours 09/23/23 09/23/23 09/23/23 Range/Units 11:40 11:45 11:59 WBC 10.9 H (3.98-10.04) x10^3/uL RBC 4.26 (3.93-5.22) x10^6/uL Hgb 11.9 (11.2-15.7) g/dL Hct 36.7 (34.1-44.9) % MCV 86.2 (79.4-94.8) fL MCH 27.9 (25.6-32.2) pg MCHC 32.4 (32.2-35.5) g/dL RDW 13.9 (11.7-14.4) % Plt Count 281 (182-369) x10^3/uL MPV 9.6 (9.4-12.3) fL Gran % 88.8 H (34.0-71.1) % Immature Gran % (Auto) 1.5 H (0.001-0.429) % Nucleat RBC Rel Count 0.0 (0.00-0.2) % Eos # (Auto) 0 L (0.04-0.36) x10^3/uL Immature Gran # (Auto) 0.16 H (0.001-0.031) x10^3u/L Absolute Lymphs (auto) 0.50 L (1.18-3.74) x10^3/uL Absolute Monos (auto) 0.51 (0.24-0.86) x10^3/uL Absolute Nucleated RBC 0.00 (0.00-0.012) x10^3u/L Lymphocytes % 4.6 L (19.3-51.7) % Monocytes % 4.7 (4.7-12.5) % Eosinophils % 0.0 L (0.7-5.8) % Basophils % 0.4 (0.1-1.2) % Absolute Granulocytes 9.72 H (1.56-6.13) x10^3/uL Basophils # 0.04 (0.01-0.08) x10^3/uL PT (9.4-12.5) SECONDS INR (0.8-3.0) D-Dimer (0.0-0.50) mg/L Sodium (135-145) mmol/L Potassium (3.5-5.1) mmol/L Chloride (98-107) mmol/L Carbon Dioxide (22-30) mmol/L Anion Gap (5-15) MEQ/L BUN (7-17) mg/dL Creatinine (0.52-1.04) mg/dL Estimated GFR ML/MIN Glucose (74-106) mg/dL POC Glucometer (74 to 106) mg/dL Lactic Acid 1.3 (0.4-2.0) Calcium (8.4-10.2) mg/dL Magnesium (1.6-2.3) mg/dL Total Bilirubin (0.2-1.3) mg/dL AST (14-36) U/L ALT (0-35) U/L Alkaline Phosphatase (38-126) U/L Troponin I < 0.012 (0.000-0.033) ng/mL NT-Pro-B Natriuret Pep (<300) pg/mL Serum Total Protein (6.3-8.2) g/dL Albumin (3.5-5.0) g/dL Nasal Screen MRSA (PCR) (NEGATIVE) Influenza Type A Ag (NEGATIVE) Influenza Type B Ag (NEGATIVE) RSV (PCR) (NEGATIVE) SARS-CoV-2 (PCR) (NEGATIVE) Slides for Path Review YES 09/23/23 09/23/23 09/23/23 Range/Units 11:59 11:59 12:40 WBC (3.98-10.04) x10^3/uL RBC (3.93-5.22) x10^6/uL Hgb (11.2-15.7) g/dL Hct (34.1-44.9) % MCV (79.4-94.8) fL MCH (25.6-32.2) pg MCHC (32.2-35.5) g/dL RDW (11.7-14.4) % Plt Count (182-369) x10^3/uL MPV (9.4-12.3) fL Gran % (34.0-71.1) % Immature Gran % (Auto) (0.001-0.429) % Nucleat RBC Rel Count (0.00-0.2) % Eos # (Auto) (0.04-0.36) x10^3/uL Immature Gran # (Auto) (0.001-0.031) x10^3u/L Absolute Lymphs (auto) (1.18-3.74) x10^3/uL Absolute Monos (auto) (0.24-0.86) x10^3/uL Absolute Nucleated RBC (0.00-0.012) x10^3u/L Lymphocytes % (19.3-51.7) % Monocytes % (4.7-12.5) % Eosinophils % (0.7-5.8) % Basophils % (0.1-1.2) % Absolute Granulocytes (1.56-6.13) x10^3/uL Basophils # (0.01-0.08) x10^3/uL PT 11.2 (9.4-12.5) SECONDS INR 1.03 (0.8-3.0) D-Dimer 1.44 H* (0.0-0.50) mg/L Sodium 134 L (135-145) mmol/L Potassium 3.8 (3.5-5.1) mmol/L Chloride 105 (98-107) mmol/L Carbon Dioxide 19 L (22-30) mmol/L Anion Gap 14.6 (5-15) MEQ/L BUN 24 H (7-17) mg/dL Creatinine 1.55 H (0.52-1.04) mg/dL Estimated GFR 40.1 ML/MIN Glucose 126 H (74-106) mg/dL POC Glucometer (74 to 106) mg/dL Lactic Acid (0.4-2.0) Calcium 8.8 (8.4-10.2) mg/dL Magnesium 1.9 (1.6-2.3) mg/dL Total Bilirubin 0.40 (0.2-1.3) mg/dL AST 31 (14-36) U/L ALT 19 (0-35) U/L Alkaline Phosphatase 98 (38-126) U/L Troponin I (0.000-0.033) ng/mL NT-Pro-B Natriuret Pep 238 (<300) pg/mL Serum Total Protein 7.1 (6.3-8.2) g/dL Albumin 3.8 (3.5-5.0) g/dL Nasal Screen MRSA (PCR) (NEGATIVE) Influenza Type A Ag NEGATIVE (NEGATIVE) Influenza Type B Ag NEGATIVE (NEGATIVE) RSV (PCR) NEGATIVE (NEGATIVE) SARS-CoV-2 (PCR) NEGATIVE (NEGATIVE) Slides for Path Review 09/23/23 09/23/23 09/23/23 Range/Units 15:35 19:35 20:15 WBC (3.98-10.04) x10^3/uL RBC (3.93-5.22) x10^6/uL Hgb (11.2-15.7) g/dL Hct (34.1-44.9) % MCV (79.4-94.8) fL MCH (25.6-32.2) pg MCHC (32.2-35.5) g/dL RDW (11.7-14.4) % Plt Count (182-369) x10^3/uL MPV (9.4-12.3) fL Gran % (34.0-71.1) % Immature Gran % (Auto) (0.001-0.429) % Nucleat RBC Rel Count (0.00-0.2) % Eos # (Auto) (0.04-0.36) x10^3/uL Immature Gran # (Auto) (0.001-0.031) x10^3u/L Absolute Lymphs (auto) (1.18-3.74) x10^3/uL Absolute Monos (auto) (0.24-0.86) x10^3/uL Absolute Nucleated RBC (0.00-0.012) x10^3u/L Lymphocytes % (19.3-51.7) % Monocytes % (4.7-12.5) % Eosinophils % (0.7-5.8) % Basophils % (0.1-1.2) % Absolute Granulocytes (1.56-6.13) x10^3/uL Basophils # (0.01-0.08) x10^3/uL PT (9.4-12.5) SECONDS INR (0.8-3.0) D-Dimer (0.0-0.50) mg/L Sodium (135-145) mmol/L Potassium (3.5-5.1) mmol/L Chloride (98-107) mmol/L Carbon Dioxide (22-30) mmol/L Anion Gap (5-15) MEQ/L BUN (7-17) mg/dL Creatinine (0.52-1.04) mg/dL Estimated GFR ML/MIN Glucose (74-106) mg/dL POC Glucometer (74 to 106) mg/dL Lactic Acid (0.4-2.0) Calcium (8.4-10.2) mg/dL Magnesium (1.6-2.3) mg/dL Total Bilirubin (0.2-1.3) mg/dL AST (14-36) U/L ALT (0-35) U/L Alkaline Phosphatase (38-126) U/L Troponin I < 0.012 < 0.012 (0.000-0.033) ng/mL NT-Pro-B Natriuret Pep (<300) pg/mL Serum Total Protein (6.3-8.2) g/dL Albumin (3.5-5.0) g/dL Nasal Screen MRSA (PCR) NOT DETECTED (NEGATIVE) Influenza Type A Ag (NEGATIVE) Influenza Type B Ag (NEGATIVE) RSV (PCR) (NEGATIVE) SARS-CoV-2 (PCR) (NEGATIVE) Slides for Path Review 09/23/23 Range/Units 20:49 WBC (3.98-10.04) x10^3/uL RBC (3.93-5.22) x10^6/uL Hgb (11.2-15.7) g/dL Hct (34.1-44.9) % MCV (79.4-94.8) fL MCH (25.6-32.2) pg MCHC (32.2-35.5) g/dL RDW (11.7-14.4) % Plt Count (182-369) x10^3/uL MPV (9.4-12.3) fL Gran % (34.0-71.1) % Immature Gran % (Auto) (0.001-0.429) % Nucleat RBC Rel Count (0.00-0.2) % Eos # (Auto) (0.04-0.36) x10^3/uL Immature Gran # (Auto) (0.001-0.031) x10^3u/L Absolute Lymphs (auto) (1.18-3.74) x10^3/uL Absolute Monos (auto) (0.24-0.86) x10^3/uL Absolute Nucleated RBC (0.00-0.012) x10^3u/L Lymphocytes % (19.3-51.7) % Monocytes % (4.7-12.5) % Eosinophils % (0.7-5.8) % Basophils % (0.1-1.2) % Absolute Granulocytes (1.56-6.13) x10^3/uL Basophils # (0.01-0.08) x10^3/uL PT (9.4-12.5) SECONDS INR (0.8-3.0) D-Dimer (0.0-0.50) mg/L Sodium (135-145) mmol/L Potassium (3.5-5.1) mmol/L Chloride (98-107) mmol/L Carbon Dioxide (22-30) mmol/L Anion Gap (5-15) MEQ/L BUN (7-17) mg/dL Creatinine (0.52-1.04) mg/dL Estimated GFR ML/MIN Glucose (74-106) mg/dL POC Glucometer 201 H (74 to 106) mg/dL Lactic Acid (0.4-2.0) Calcium (8.4-10.2) mg/dL Magnesium (1.6-2.3) mg/dL Total Bilirubin (0.2-1.3) mg/dL AST (14-36) U/L ALT (0-35) U/L Alkaline Phosphatase (38-126) U/L Troponin I (0.000-0.033) ng/mL NT-Pro-B Natriuret Pep (<300) pg/mL Serum Total Protein (6.3-8.2) g/dL Albumin (3.5-5.0) g/dL Nasal Screen MRSA (PCR) (NEGATIVE) Influenza Type A Ag (NEGATIVE) Influenza Type B Ag (NEGATIVE) RSV (PCR) (NEGATIVE) SARS-CoV-2 (PCR) (NEGATIVE) Slides for Path Review - Radiology Impressions Radiology Exams & Impressions: Radiology Procedures Category Date Time Status CHEST 1 VIEW (PORTABLE) Stat Exams 09/23/23 11:40 Completed CHEST WITH CONTRAST [CT] Stat Exams 09/23/23 12:49 Completed - Other Procedures and Tests Respiratory Therapy 09/23/23 15:29 EKG REPEAT IN AM Oxygen Nasal Cannula 2 lpm 09/23/23 15:55 Respiratory Therapy Assessment DAILY Telemedicine Encounter - Telemedicine Encounter Telemedicine Encounter: The entirety of this encounter was performed via Telemedicine" RADHA Encounter - RADHA Encounter Attestation RADHA Encounter Attestation: "IhavepersonallyseenandexDEBBIE Lai MARILU andhavediscussed pertinent aspects of their care with Larry Burciaga and agree with the history, physical exam (any modifications based on my personal exam will be noted below), assessment, and plan as outlined in original note. Please see immediately below for my summary of findings and additional assessment and plan along with any meaningful corrections/explanations to the Subjective/Objective portions of the RADHA note will be noted." My portion of the encounter took place via telemedicine. -Patient with COPD, current smoker, presenting with hypoxia, cough, fevers, bilateral patchy infiltrates. Presentation consistent with pneumonia. Given h/o COPD and outpatient failure with Cefdinir, would initiate zosyn. Add vanc if abi al MRSA positive.
[2023-09-23] MEDS: Sodium Chloride 0.9% 1000 ML 1,000 ML IV SCH (16:19)
[2023-09-23] MEDS: ENOXAPARIN SODIUM SQ SCH (16:22)
[2023-09-23] MEDS: Piperacillin/Tazobactam 2.25 GM 2.25 GM in Sodium Chloride 100ML MINI-BAG PLUS 100 ML IV SCH (17:53)
[2023-09-23] MEDS ORDERED: PIPERACILLIN/TAZOBACTAM 3.375 GM in Sodium Chloride 100ML MINI-BAG PLUS 100 ML IV SCH (18:00)
[2023-09-23] MEDS: DUONEB 0.5-3 MG/3 ml Neb IH SCH (19:06)
[2023-09-23] MEDS: Advair Hfa 230/21 Mcg COMMON CANISTER IH SCH (19:11)
[2023-09-23] MEDS: NON-FORMULARY ITEM (Hydroxychloroquine Sulfate [Plaquenil] 200 MG Tablet) PO SCH (23:08)
[2023-09-23] MEDS: MODAFINIL 200 MG PO SCH (23:09)
[2023-09-23] MEDS: solu-MEDROL 40 MG, Sterile H2O 10 ml 1 ML IV SCH (23:09)
[2023-09-24 04:43] LABS: Absolute Neutrophil Ct (ANC) 7.93 x10^3/uL (1.56-6.13); BASOPHIL % 0.3 % (0.1-1.2); Basophil (Absolute #) 0.03 x10^3/uL (0.01-0.08); Eosinophil (Absolute #) 0 x10^3/uL (0.04-0.36); Hematocrit 39.7 % (34.1-44.9); Hemoglobin 12.1 g/dL (11.2-15.7); IMMATURE GRAN # 0.09 x10^3u/L (0.001-0.031); Lymphocytes % 4.6 % (19.3-51.7); Mean Cell Volume 92.8 fL (79.4-94.8); Mean Corpuscular Hemoglobin 28.3 pg (25.6-32.2); Mean Corpuscular Hgb Concent. 30.5 g/dL (32.2-35.5); Mean Platelet Volume 10.2 fL (9.4-12.3); Monocyte (Absolute #) 0.23 x10^3/uL (0.24-0.86); Monocytes % 2.6 % (4.7-12.5); Neutrophil % 91.5 % (34.0-71.1); Platelet Count 211 x10^3/uL (182-369); Red Blood Count 4.28 x10^6/uL (3.93-5.22); Red Cell Distribution Width 14.2 % (11.7-14.4); White Blood Count 8.7 x10^3/uL (3.98-10.04)
[2023-09-24 05:13] LABS: ALBUMIN 3.2 g/dL (3.5-5.0); ANION GAP 14.9 MEQ/L (5-15); BILIRUBIN,TOTAL 0.5 mg/dL (0.2-1.3); Calcium 8.5 mg/dL (8.4-10.2); Creatinine 1 1.14 mg/dL (0.52-1.04); EST GLOMERULAR FILTRATION RATE 57.9 ML/MIN; Potassium 4.2 mmol/L (3.5-5.1); Total Protein 6.2 g/dL (6.3-8.2)
--- NOTE | 2023-09-24 05:23 | PCM.NOTE ---
Date and Time: 09/24/23 0521 Subjective Assessment: HPI: is a 53 year old female with a pmhx of MINDA, HLD, HTN, GERD, current everyday smoker, hypothyroid, COPD/asthma, Aflutter (metoprolol), insulin resistance, and Sjorgrens who presented to ED 09/23/23 with complaints of progressive dyspnea and cough. Patient reports fever with TMax of 103 since this past Thursday, weakness, and a non-productive cough. She was seen as OP on 09/21/23 and was diagnosed with a bilateral ear infection and placed on cefdinir. Patient states she was prompted to report to the ED today when she was unable to resolve her fever, was short of breath with exertion, and became so weak she was having difficulty performing ADL's. In ED, patient tachycardic, tachypneic, febrile with temp at 103, and spo2 at 91% on RA. Chest CT demonstrates diffuse bilateral patchy consolidating airspace disease with a tiny right effusion. No PE. Lab findings remarkable for mild leukocytosis with WBC at 10.9, Ddimer at 1.44 (no PE on CT), mild hyponatremia at 134, Co2 at 19, TUAN with creat at 1.55 (baseline 1.3). Received levofloxacin, solumedrol, DuoNebs, and fluid bolus in E D. 09/24/23: Met with patient bedside. Endorses improvement in dyspnea. Cough is slightly more productive. Afebrile overnight. WBC now WNL. Hyponatremia resolved. Worsening acidosis - pt declines ABG. Denies fever,cp, abdominal pain, GIVENS, dizziness, N/V/D. - Review of Systems Constitutional: Weakness Eyes: No Symptoms Ears, Nose, & Throat: No Symptoms Respiratory: Cough, Short Of Breath Cardiac: No Symptoms Abdominal/Gastrointestinal: No Symptoms Genitourinary Symptoms: No Symptoms Musculoskeletal: No Symptoms Skin: No Symptoms Neurological: No Symptoms Psychological: No Symptoms Endocrine: No Symptoms Hematologic/Lymphatic: No Symptoms Immunological/Allergic: No Symptoms Objective Exam General Appearance: no apparent distress Neurologic Exam: alert, oriented x 3, cooperative Skin Exam: normal color Eye Exam: PERRL Ears, Nose, Throat Exam: normal ENT inspection Neck Exam: normal inspection Respiratory Exam: crackles/rales Cardiovascular Exam: regular rate/rhythm, normal heart sounds Gastrointestinal/Abdomen Exam: soft, normal bowel sounds Extremity Exam: normal inspection Back Exam: normal inspection Pelvic Exam: deferred Rectal Exam: deferred Objective Data Vital Signs: Vital Signs - 24 hr Temp Pulse Resp BP BP Pulse Ox 09/24/23 04:00 97.7 F 67 20 100/60 99 09/24/23 01:19 64 16 99 09/24/23 00:00 96.4 F 67 20 111/66 95 09/23/23 20:00 96.6 F 77 17 114/62 93 L 09/23/23 19:51 74 16 94 L 09/23/23 15:44 99.6 F 89 20 105/55 92 L 09/23/23 15:37 99.6 F 89 18 105/55 92 L 09/23/23 15:05 94 L 09/23/23 14:01 101/55 95 09/23/23 14:00 94 L 09/23/23 13:50 93 L 09/23/23 13:45 99.4 F 95 09/23/23 13:01 96 H 27 H 135/28 99 09/23/23 13:00 95 H 24 97 09/23/23 12:50 93 H 20 96 09/23/23 12:40 96 H 23 94 L 09/23/23 12:33 96 H 23 93 L 09/23/23 12:22 92 H 28 H 94 L 09/23/23 12:09 91 H 25 H 136/66 95 09/23/23 12:00 92 H 28 H 94 L 09/23/23 11:53 93 H 26 H 94 L 09/23/23 11:42 91 L 09/23/23 11:30 93 H 27 H 120/78 95 09/23/23 11:18 103 F 98 H 18 127/82 94 L Pain Assessment - Last Documented Pain Intensity 0 Intake and Output: Intake & Output 09/21/23 09/22/23 09/23/23 09/24/23 11:59 11:59 11:59 11:59 Intake Total 240 Balance 240 Weight 137.2 kg 137.6 kg Lab Results: Lab Results-Last 24 Hours 09/23/23 09/23/23 09/23/23 Range/Units 11:40 11:45 11:59 WBC 10.9 H (3.98-10.04) x10^3/uL RBC 4.26 (3.93-5.22) x10^6/uL Hgb 11.9 (11.2-15.7) g/dL Hct 36.7 (34.1-44.9) % MCV 86.2 (79.4-94.8) fL MCH 27.9 (25.6-32.2) pg MCHC 32.4 (32.2-35.5) g/dL RDW 13.9 (11.7-14.4) % Plt Count 281 (182-369) x10^3/uL MPV 9.6 (9.4-12.3) fL Gran % 88.8 H (34.0-71.1) % Immature Gran % (Auto) 1.5 H (0.001-0.429) % Nucleat RBC Rel Count 0.0 (0.00-0.2) % Eos # (Auto) 0 L (0.04-0.36) x10^3/uL Immature Gran # (Auto) 0.16 H (0.001-0.031) x10^3u/L Absolute Lymphs (auto) 0.50 L (1.18-3.74) x10^3/uL Absolute Monos (auto) 0.51 (0.24-0.86) x10^3/uL Absolute Nucleated RBC 0.00 (0.00-0.012) x10^3u/L Lymphocytes % 4.6 L (19.3-51.7) % Monocytes % 4.7 (4.7-12.5) % Eosinophils % 0.0 L (0.7-5.8) % Basophils % 0.4 (0.1-1.2) % Absolute Granulocytes 9.72 H (1.56-6.13) x10^3/uL Basophils # 0.04 (0.01-0.08) x10^3/uL PT (9.4-12.5) SECONDS INR (0.8-3.0) D-Dimer (0.0-0.50) mg/L Sodium (135-145) mmol/L Potassium (3.5-5.1) mmol/L Chloride (98-107) mmol/L Carbon Dioxide (22-30) mmol/L Anion Gap (5-15) MEQ/L BUN (7-17) mg/dL Creatinine (0.52-1.04) mg/dL Estimated GFR ML/MIN Glucose (74-106) mg/dL POC Glucometer (74 to 106) mg/dL Lactic Acid 1.3 (0.4-2.0) Calcium (8.4-10.2) mg/dL Magnesium (1.6-2.3) mg/dL Total Bilirubin (0.2-1.3) mg/dL AST (14-36) U/L ALT (0-35) U/L Alkaline Phosphatase (38-126) U/L Troponin I < 0.012 (0.000-0.033) ng/mL NT-Pro-B Natriuret Pep (<300) pg/mL Serum Total Protein (6.3-8.2) g/dL Albumin (3.5-5.0) g/dL Nasal Screen MRSA (PCR) (NEGATIVE) Influenza Type A Ag (NEGATIVE) Influenza Type B Ag (NEGATIVE) RSV (PCR) (NEGATIVE) SARS-CoV-2 (PCR) (NEGATIVE) Slides for Path Review YES 09/23/23 09/23/23 09/23/23 Range/Units 11:59 11:59 12:40 WBC (3.98-10.04) x10^3/uL RBC (3.93-5.22) x10^6/uL Hgb (11.2-15.7) g/dL Hct (34.1-44.9) % MCV (79.4-94.8) fL MCH (25.6-32.2) pg MCHC (32.2-35.5) g/dL RDW (11.7-14.4) % Plt Count (182-369) x10^3/uL MPV (9.4-12.3) fL Gran % (34.0-71.1) % Immature Gran % (Auto) (0.001-0.429) % Nucleat RBC Rel Count (0.00-0.2) % Eos # (Auto) (0.04-0.36) x10^3/uL Immature Gran # (Auto) (0.001-0.031) x10^3u/L Absolute Lymphs (auto) (1.18-3.74) x10^3/uL Absolute Monos (auto) (0.24-0.86) x10^3/uL Absolute Nucleated RBC (0.00-0.012) x10^3u/L Lymphocytes % (19.3-51.7) % Monocytes % (4.7-12.5) % Eosinophils % (0.7-5.8) % Basophils % (0.1-1.2) % Absolute Granulocytes (1.56-6.13) x10^3/uL Basophils # (0.01-0.08) x10^3/uL PT 11.2 (9.4-12.5) SECONDS INR 1.03 (0.8-3.0) D-Dimer 1.44 H* (0.0-0.50) mg/L Sodium 134 L (135-145) mmol/L Potassium 3.8 (3.5-5.1) mmol/L Chloride 105 (98-107) mmol/L Carbon Dioxide 19 L (22-30) mmol/L Anion Gap 14.6 (5-15) MEQ/L BUN 24 H (7-17) mg/dL Creatinine 1.55 H (0.52-1.04) mg/dL Estimated GFR 40.1 ML/MIN Glucose 126 H (74-106) mg/dL POC Glucometer (74 to 106) mg/dL Lactic Acid (0.4-2.0) Calcium 8.8 (8.4-10.2) mg/dL Magnesium 1.9 (1.6-2.3) mg/dL Total Bilirubin 0.40 (0.2-1.3) mg/dL AST 31 (14-36) U/L ALT 19 (0-35) U/L Alkaline Phosphatase 98 (38-126) U/L Troponin I (0.000-0.033) ng/mL NT-Pro-B Natriuret Pep 238 (<300) pg/mL Serum Total Protein 7.1 (6.3-8.2) g/dL Albumin 3.8 (3.5-5.0) g/dL Nasal Screen MRSA (PCR) (NEGATIVE) Influenza Type A Ag NEGATIVE (NEGATIVE) Influenza Type B Ag NEGATIVE (NEGATIVE) RSV (PCR) NEGATIVE (NEGATIVE) SARS-CoV-2 (PCR) NEGATIVE (NEGATIVE) Slides for Path Review 0609/23/23 09/23/23 Range/Units 15:35 19:35 20:15 WBC (3.98-10.04) x10^3/uL RBC (3.93-5.22) x10^6/uL Hgb (11.2-15.7) g/dL Hct (34.1-44.9) % MCV (79.4-94.8) fL MCH (25.6-32.2) pg MCHC (32.2-35.5) g/dL RDW (11.7-14.4) % Plt Count (182-369) x10^3/uL MPV (9.4-12.3) fL Gran % (34.0-71.1) % Immature Gran % (Auto) (0.001-0.429) % Nucleat RBC Rel Count (0.00-0.2) % Eos # (Auto) (0.04-0.36) x10^3/uL Immature Gran # (Auto) (0.001-0.031) x10^3u/L Absolute Lymphs (auto) (1.18-3.74) x10^3/uL Absolute Monos (auto) (0.24-0.86) x10^3/uL Absolute Nucleated RBC (0.00-0.012) x10^3u/L Lymphocytes % (19.3-51.7) % Monocytes % (4.7-12.5) % Eosinophils % (0.7-5.8) % Basophils % (0.1-1.2) % Absolute Granulocytes (1.56-6.13) x10^3/uL Basophils # (0.01-0.08) x10^3/uL PT (9.4-12.5) SECONDS INR (0.8-3.0) D-Dimer (0.0-0.50) mg/L Sodium (135-145) mmol/L Potassium (3.5-5.1) mmol/L Chloride (98-107) mmol/L Carbon Dioxide (22-30) mmol/L Anion Gap (5-15) MEQ/L BUN (7-17) mg/dL Creatinine (0.52-1.04) mg/dL Estimated GFR ML/MIN Glucose (74-106) mg/dL POC Glucometer (74 to 106) mg/dL Lactic Acid (0.4-2.0) Calcium (8.4-10.2) mg/dL Magnesium (1.6-2.3) mg/dL Total Bilirubin (0.2-1.3) mg/dL AST (14-36) U/L ALT (0-35) U/L Alkaline Phosphatase (38-126) U/L Troponin I < 0.012 < 0.012 (0.000-0.033) ng/mL NT-Pro-B Natriuret Pep (<300) pg/mL Serum Total Protein (6.3-8.2) g/dL Albumin (3.5-5.0) g/dL Nasal Screen MRSA (PCR) NOT DETECTED (NEGATIVE) Influenza Type A Ag (NEGATIVE) Influenza Type B Ag (NEGATIVE) RSV (PCR) (NEGATIVE) SARS-CoV-2 (PCR) (NEGATIVE) Slides for Path Review 09/23/23 09/24/23 09/24/23 Range/Units 20:49 04:29 04:29 WBC 8.7 (3.98-10.04) x10^3/uL RBC 4.28 (3.93-5.22) x10^6/uL Hgb 12.1 (11.2-15.7) g/dL Hct 39.7 (34.1-44.9) % MCV 92.8 D (79.4-94.8) fL MCH 28.3 (25.6-32.2) pg MCHC 30.5 L (32.2-35.5) g/dL RDW 14.2 (11.7-14.4) % Plt Count 211 (182-369) x10^3/uL MPV 10.2 (9.4-12.3) fL Gran % 91.5 H (34.0-71.1) % Immature Gran % (Auto) 1.0 H (0.001-0.429) % Nucleat RBC Rel Count 0.0 (0.00-0.2) % Eos # (Auto) 0 L (0.04-0.36) x10^3/uL Immature Gran # (Auto) 0.09 H (0.001-0.031) x10^3u/L Absolute Lymphs (auto) 0.40 L (1.18-3.74) x10^3/uL Absolute Monos (auto) 0.23 L (0.24-0.86) x10^3/uL Absolute Nucleated RBC 0.00 (0.00-0.012) x10^3u/L Lymphocytes % 4.6 L (19.3-51.7) % Monocytes % 2.6 L (4.7-12.5) % Eosinophils % 0.0 L (0.7-5.8) % Basophils % 0.3 (0.1-1.2) % Absolute Granulocytes 7.93 H (1.56-6.13) x10^3/uL Basophils # 0.03 (0.01-0.08) x10^3/uL PT (9.4-12.5) SECONDS INR (0.8-3.0) D-Dimer (0.0-0.50) mg/L Sodium 138 (135-145) mmol/L Potassium 4.2 (3.5-5.1) mmol/L Chloride 111 H (98-107) mmol/L Carbon Dioxide 16 L* (22-30) mmol/L Anion Gap 14.9 (5-15) MEQ/L BUN 22 H (7-17) mg/dL Creatinine 1.14 H (0.52-1.04) mg/dL Estimated GFR 57.9 ML/MIN Glucose 152 H (74-106) mg/dL POC Glucometer 201 H (74 to 106) mg/dL Lactic Acid (0.4-2.0) Calcium 8.5 (8.4-10.2) mg/dL Magnesium (1.6-2.3) mg/dL Total Bilirubin 0.50 (0.2-1.3) mg/dL AST 44 H (14-36) U/L ALT 23 (0-35) U/L Alkaline Phosphatase 79 (38-126) U/L Troponin I (0.000-0.033) ng/mL NT-Pro-B Natriuret Pep 498 (<300) pg/mL Serum Total Protein 6.2 L (6.3-8.2) g/dL Albumin 3.2 L (3.5-5.0) g/dL Nasal Screen MRSA (PCR) (NEGATIVE) Influenza Type A Ag (NEGATIVE) Influenza Type B Ag (NEGATIVE) RSV (PCR) (NEGATIVE) SARS-CoV-2 (PCR) (NEGATIVE) Slides for Path Review Radiology Exams: Radiology Procedures Category Date Time Status CHEST 1 VIEW (PORTABLE) Stat Exams 09/23/23 11:40 Completed CHEST WITH CONTRAST [CT] Stat Exams 09/23/23 12:49 Completed Multi-Disciplinary Progress Notes: Multi-Disciplinary Progress Notes 09/23/23 16:10 Pharmacy Note by Eros Ford Zosyn dose decreased to 2.25gm per renal dosing policy. Estimated crcl is 36ml/min. Initialized on 09/23/23 16:10 - END OF NOTE Assessment/Plan (1) Sepsis Current Visit: Yes Status: Acute Assessment & Plan: -Most likely multifactoral with recent otitis media and pneumonia- OP failure with cefdinir -Meets criteria with tachycardia, tachypnea, fever, and known source of infection -Received 1L fluid bolus in ED, LA WNL - will continue fluids at 125ml/hr -CT consistent with bilateral pneumonia -Levofloxacin started in ED, will continue with Zosyn -MRSA nasal swab - if positive add vancomycin -Supplemental oxygen with spo2 goal > 92% -PCT, UA -ABG if significant hypoxia/lethargy 09/23: -WBC now wnl -2L -RA at baseline - wean -Continue zosyn -MRSA negative -No longer meets sepsis criteria (2) Pneumonia Current Visit: Yes Status: Acute Assessment & Plan: - CT consistent with bilateral pneumonia -MRSA swab -supplemental oxygen with spo2 goal > 92% - on 2L now, baseline RA -sputum culture -Resp viral panel negative -bcult pending -Levaquin started in ED- OP failure with cefdinir- will continue with Zosyn 09/23: -Continue zosyn/Nebs/steroids -MRSA negative Code(s): J18.9 - PNEUMONIA, UNSPECIFIED ORGANISM (3) Hyponatremia Current Visit: Yes Status: Acute Assessment & Plan: -Mild -IVF -continue to monitor renal/lytes daily 09/23: -resolved Code(s): E87.1 - HYPO-OSMOLALITY AND HYPONATREMIA (4) Insulin resistance Current Visit: Yes Status: Acute Assessment & Plan: -On metformin - hold for now due to contrast CT, no DM Code(s): E88.819 - INSULIN RESISTANCE, UNSPECIFIED (5) Atrial flutter Current Visit: Yes Status: Acute Code(s): I48.92 - UNSPECIFIED ATRIAL FLUTTER (6) Acute on chronic renal failure Current Visit: Yes Status: Acute Assessment & Plan: -baseline creat around 1.3, today at 1.55 -continue IVF -Avoid nephrotoxic medications ALEJANDRA/ARB/NSAIDS -Monitor renal/lytes daily 09/23: -resolved - d/c fluids Code(s): N17.9 - ACUTE KIDNEY FAILURE, UNSPECIFIED; N18.9 - CHRONIC KIDNEY DISEASE, UNSPECIFIED (7) COPD exacerbation Current Visit: Yes Status: Acute Assessment & Plan: -RA at baseline -Supplemental oxygen as needed to maintain spo2 >92% -solumedrol -RT eval - Nebs/ INH -abx -ABG/BIPAP as needed 09/23: -2L oxygen -wean - RA at baseline Code(s): J44.1 - CHRONIC OBSTRUCTIVE PULMONARY DISEASE W (ACUTE) EXACERBATION (8) MINDA (obstructive sleep apnea) Current Visit: Yes Status: Acute Assessment & Plan: -continue CPAP Code(s): G47.33 - OBSTRUCTIVE SLEEP APNEA (ADULT) (PEDIATRIC) (9) HTN (hypertension) Current Visit: Yes Status: Acute Assessment & Plan: -stable - continue home meds, monitor closely for hypotension VTE: lovenox PPI: protonix Dispo: 1-2 days Code Status: Full code (2) Pneumonia Current Visit: Yes Status: Acute Code(s): J18.9 - PNEUMONIA, UNSPECIFIED ORGANISM (3) Hyponatremia Current Visit: Yes Status: Acute Code(s): E87.1 - HYPO-OSMOLALITY AND HYPONATREMIA (4) Insulin resistance Current Visit: Yes Status: Acute Code(s): E88.819 - INSULIN RESISTANCE, UNSPECIFIED (5) Atrial flutter Current Visit: Yes Status: Acute Code(s): I48.92 - UNSPECIFIED ATRIAL FLUTTER (6) Acute on chronic renal failure Current Visit: No Status: Acute Code(s): N17.9 - ACUTE KIDNEY FAILURE, UNSPECIFIED; N18.9 - CHRONIC KIDNEY DISEASE, UNSPECIFIED (7) COPD exacerbation Current Visit: No Status: Acute Code(s): J44.1 - CHRONIC OBSTRUCTIVE PULM ONARY DISEASE W (ACUTE) EXACERBATION (8) MINDA (obstructive sleep apnea) Current Visit: No Status: Acute Code(s): G47.33 - OBSTRUCTIVE SLEEP APNEA (ADULT) (PEDIATRIC) (9) HTN (hypertension) Current Visit: No Status: Acute Code(s): I10 - ESSENTIAL (PRIMARY) HYPERTENSION
[2023-09-24] MEDS: SODIUM BICARBONATE PO SCH (08:20)
[2023-09-24] MEDS: Robitussin-Dm Syrup PO PRN (08:21)
[2023-09-24] MEDS: Toprol-Xl 25MG Tablets PO SCH (09:09)
[2023-09-24] MEDS: Protonix 40MG Tablet PO SCH (09:09)
[2023-09-24] MEDS: NON-FORMULARY ITEM PO SCH (09:10)
[2023-09-24] MEDS: ZOCOR 20MG PO SCH (09:10)
[2023-09-24] MEDS: Wellbutrin XL 150 MG PO SCH (09:10)
[2023-09-24] MEDS: PREMARIN PO SCH (09:11)
[2023-09-24] MEDS ORDERED: LEVOTHYROXINE SODIUM 137 MCG PO SCH (10:00)
[2023-09-24] MEDS ORDERED: NON-FORMULARY ITEM (Rosuvastatin Calcium [Rosuvastatin Calcium] 10 MG Tablet) PO SCH (10:00)
[2023-09-24] MEDS ORDERED: ESOMEPRAZOLE MAGNESIUM 20 MG PO SCH (10:00)
[2023-09-24] MEDS: SYNTHROID PO SCH (10:15)
[2023-09-24 11:01] LABS: ISTAT CREA 1.2 mg/dL (0.6-1.3); ISTAT K 3.5 mmol/L (3.5-4.9); ISTAT iCA 1.12 mmol/L (1.12-1.32)
[2023-09-24] MEDS: TYLENOL 325 MG PO PRN (12:22)
[2023-09-24] MEDS ORDERED: Mucinex 600MG ER Tabs PO SCH (22:00)
[2023-09-24] MEDS: Mucinex 600MG ER Tabs PO SCH (22:32)
[2023-09-24 23:11] LABS: Appearance Clear (Clear); Bacteria None Seen /HPF (None Seen); Bilirubin Negative (Negative); Blood Negative (Negative); Epithelial Cells Few /HPF (None Seen); Glucose, Urine Negative (Negative); Ketones Trace (Negative); Leukocyte Esterase Negative (Negative); Nitrite Negative (Negative); Protein,Urine Dip 100 (Negative); Specific Gravity >=1.030 (1.005-1.030); Urobilinogen 0.2 mg/dL (0.2); WBC 0-2 /HPF (0-5)
[2023-09-24 23:15] LABS: ADD URINE CULTURE? NO (NO)
[2023-09-25 04:48] LABS: Absolute Neutrophil Ct (ANC) 10.07 x10^3/uL (1.56-6.13); BASOPHIL % 0.3 % (0.1-1.2); Basophil (Absolute #) 0.03 x10^3/uL (0.01-0.08); Eosinophil (Absolute #) 0 x10^3/uL (0.04-0.36); Hemoglobin 12.2 g/dL (11.2-15.7); IMMATURE GRAN # 0.14 x10^3u/L (0.001-0.031); IMMATURE GRAN % 1.3 % (0.001-0.429); Lymphocyte (Absolute #) 0.47 x10^3/uL (1.18-3.74); Lymphocytes % 4.2 % (19.3-51.7); Mean Cell Volume 85.8 fL (79.4-94.8); Mean Corpuscular Hemoglobin 27.5 pg (25.6-32.2); Mean Corpuscular Hgb Concent. 32.1 g/dL (32.2-35.5); Mean Platelet Volume 9.8 fL (9.4-12.3); Monocyte (Absolute #) 0.47 x10^3/uL (0.24-0.86); Monocytes % 4.2 % (4.7-12.5); Platelet Count 306 x10^3/uL (182-369); Red Blood Count 4.43 x10^6/uL (3.93-5.22); Red Cell Distribution Width 14.1 % (11.7-14.4); White Blood Count 11.2 x10^3/uL (3.98-10.04)
[2023-09-25 05:01] LABS: ALBUMIN 3.6 g/dL (3.5-5.0); ANION GAP 14.5 MEQ/L (5-15); BILIRUBIN,TOTAL 0.4 mg/dL (0.2-1.3); Calcium 9.3 mg/dL (8.4-10.2); Creatinine 1 1.21 mg/dL (0.52-1.04); EST GLOMERULAR FILTRATION RATE 53.9 ML/MIN; Total Protein 6.9 g/dL (6.3-8.2)
[2023-09-25 06:46] VITALS: RESP 16
--- NOTE | 2023-09-25 09:08 | PCM.DS ---
Discharge Summary Date of Admission: 09/23/23 15:25 Date of Discharge: 09/25/23 Admitting Physician: MANAS BARNARD MD Primary Care Provider: ANDREW FRAGOSO Allergies Allergies No Known Drug Allergies Allergy (Verified 05/13/18 07:01) Hospital Summary - Hospital Course Hospital Course: HPI: is a 53 year old female with a pmhx of MINDA, HLD, HTN, GERD, current everyday smoker, hypothyroid, COPD/asthma, Aflutter (metoprolol), insulin resistance, and Sjorgrens who presented to ED 09/23/23 with complaints of progressive dyspnea and cough. Patient reports fever with TMax of 103 since this past Thursday, weakness, and a non-productive cough. She was seen as OP on 09/21/23 and was diagnosed with a bilateral ear infection and placed on cefdinir. Patient states she was prompted to report to the ED today when she was unable to resolve her fever, was short of breath with exertion, and became so weak she was having difficulty performing ADL's. In ED, patient tachycardic, tachypneic, febrile with temp at 103, and spo2 at 91% on RA. Chest CT demonstrates diffuse bilateral patchy consolidating airspace disease with a tiny right effusion. No PE. Lab findings remarkable for mild leukocytosis with WBC at 10.9, Ddimer at 1.44 (no PE on CT), mild hyponatremia at 134, Co2 at 19, TUAN with creat at 1.55 (baseline 1.3). Received levofloxacin, solumedrol, DuoNebs, and fluid bolus in ED. Zosyn continued with noted improvement. Dyspnea and cough have improved. Patient at baseline RA. Labs improved. Patient stable for discharge. Will have RT perform walk test to ensure no home oxygen is needed. Patient advised close follow up with PCP. Will send home on Levaquin, medrol dose pack, and nebulizer treatments. Advised smoking cessation. Discharge Note New Diagnosis: Pneumonia New Medications: Nebs/levaquin/medrol dose pack Follow Up: PCP Latest Assessment & Plan (1) Sepsis Current Visit: Yes Status: Acute Assessment & Plan: -Most likely multifactoral with recent otitis media and pneumonia- OP failure with cefdinir -Meets criteria with tachycardia, tachypnea, fever, and known source of infect ion -Received 1L fluid bolus in ED, LA WNL - will continue fluids at 125ml/hr -CT consistent with bilateral pneumonia -Levofloxacin started in ED, will continue with Zosyn -MRSA nasal swab - if positive add vancomycin -Supplemental oxygen with spo2 goal > 92% -PCT, UA -ABG if significant hypoxia/lethargy 09/23: -WBC now wnl -2L -RA at baseline - wean -Continue zosyn -MRSA negative -No longer meets sepsis criteria (2) Pneumonia Current Visit: Yes Status: Acute Assessment & Plan: - CT consistent with bilateral pneumonia -MRSA swab -supplemental oxygen with spo2 goal > 92% - on 2L now, baseline RA -sputum culture -Resp viral panel negative -bcult pending -Levaquin started in ED- OP failure with cefdinir- will continue with Zosyn 09/23: -Continue zosyn/Nebs/steroids -MRSA negative Code(s): J18.9 - PNEUMONIA, UNSPECIFIED ORGANISM (3) Hyponatremia Current Visit: Yes Status: Acute Assessment & Plan: -Mild -IVF -continue to monitor renal/lytes daily 09/23: -resolved Code(s): E87.1 - HYPO-OSMOLALITY AND HYPONATREMIA (4) Insulin resistance Current Visit: Yes Status: Acute Assessment & Plan: -On metformin - hold for now due to contrast CT, no DM Code(s): E88.819 - INSULIN RESISTANCE, UNSPECIFIED (5) Atrial flutter Current Visit: Yes Status: Acute Code(s): I48.92 - UNSPECIFIED ATRIAL FLUTTER (6) Acute on chronic renal failure Current Visit: Yes Status: Acute Assessment & Plan: -baseline creat around 1.3, today at 1.55 -continue IVF -Avoid nephrotoxic medications ALEJANDRA/ARB/NSAIDS -Monitor renal/lytes daily 09/23: -resolved - d/c fluids Code(s): N17.9 - ACUTE KIDNEY FAILURE, UNSPECIFIED; N18.9 - CHRONIC KIDNEY DISEASE, UNSPECIFIED (7) COPD exacerbation Current Visit: Yes Status: Acute Assessment & Plan: -RA at baseline -Supplemental oxygen as needed to maintain spo2 >92% -solumedrol -RT eval - Nebs/ INH -abx -ABG/BIPAP as needed 09/23: -2L oxygen -wean - RA at baseline Code(s): J44.1 - CHRONIC OBSTRUCTIVE PULMONARY DISEASE W (ACUTE) EXACERBATION (8) MINDA (obstructive sleep apnea) Current Visit: Yes Status: Acute Assessment & Plan: -continue CPAP Code(s): G47.33 - OBSTRUCTIVE SLEEP APNEA (ADULT) (PEDIATRIC) (9) HTN (hypertension) Current Visit: Yes Status: Acute Assessment & Plan: -stable - continue home meds, monitor closely for hypotension VTE: kirstennox I spent 35 minutes [id number] with the patient on the day of discharge performing discharge exam, discussing hospital stay and discharge instructions with patient and caregivers, preparation of discharge records, prescriptions & referral forms and addressing any questions/concerns the patient had as documented above. - Vitals & Intake/Output Vital Signs: Vital Signs Temperature 97.7 F 09/25/23 06:40 Pulse Rate 76 09/25/23 07:30 Respiratory Rate 16 09/25/23 07:30 Blood Pressure 102/56 09/25/23 06:40 O2 Sat by Pulse Oximetry 93 L 09/25/23 07:30 Intake & Output: Intake & Output 09/22/23 09/23/23 09/24/23 09/25/23 11:59 11:59 11:59 11:59 Intake Total 480 4409 Balance 480 4409 Weight 137.2 kg 137.6 kg - Lab Result Diagrams: 09/25/23 04:35 09/25/23 04:35 Lab Results-Last 24 Hrs: Lab Results-Last 24 Hours 09/23/23 09/24/23 09/25/23 Range/Units 23:00 10:05 04:35 WBC 11.2 H (3.98-10.04) x10^3/uL RBC 4.43 (3.93-5.22) x10^6/uL Hgb 12.2 (11.2-15.7) g/dL Hct 38.0 (34.1-44.9) % MCV 85.8 D (79.4-94.8) fL MCH 27.5 (25.6-32.2) pg MCHC 32.1 L (32.2-35.5) g/dL RDW 14.1 (11.7-14.4) % Plt Count 306 D (182-369) x10^3/uL MPV 9.8 (9.4-12.3) fL Gran % 90.0 H (34.0-71.1) % Immature Gran % (Auto) 1.3 H (0.001-0.429) % Nucleat RBC Rel Count 0.0 (0.00-0.2) % Eos # (Auto) 0 L (0.04-0.36) x10^3/uL Immature Gran # (Auto) 0.14 H (0.001-0.031) x10^3u/L Absolute Lymphs (auto) 0.47 L (1.18-3.74) x10^3/uL Absolute Monos (auto) 0.47 (0.24-0.86) x10^3/uL Absolute Nucleated RBC 0.00 (0.00-0.012) x10^3u/L Lymphocytes % 4.2 L (19.3-51.7) % Monocytes % 4.2 L (4.7-12.5) % Eosinophils % 0.0 L (0.7-5.8) % Basophils % 0.3 (0.1-1.2) % Absolute Granulocytes 10.07 H (1.56-6.13) x10^3/uL Basophils # 0.03 (0.01-0.08) x10^3/uL Sodium (135-145) mmol/L Sodium Direct 137 L (138-146) mmol/L Potassium 3.5 (3.5-4.9) mmol/L Chloride 109 (98-109) mmol/L Carbon Dioxide 20 L (24-29) mmol/L Anion Gap (5-15) MEQ/L BUN (7-17) mg/dL Venous BUN 27 H (8-26) mg/dL Creatinine 1.2 (0.6-1.3) mg/dL Estimated GFR ML/MIN Glucose 164 H (70-105) mg/dL Calcium (8.4-10.2) mg/dL Ionized Calcium 1.12 (1.12-1.32) mmol/L Total Bilirubin (0.2-1.3) mg/dL AST (14-36) U/L ALT (0-35) U/L Alkaline Phosphatase (38-126) U/L Serum Total Protein (6.3-8.2) g/dL Albumin (3.5-5.0) g/dL Urine Color Yellow (Yellow) Urine Appearance Clear (Clear) Urine pH 6.0 (4.6-8.0) Ur Specific [place] >=1.030 A (1.005-1.030) Urine Protein 100 A (Negative) Urine Glucose (UA) Negative (Negative) mg/dL Urine Ketones Trace A (Negative) Urine Blood Negative (Negative) Urine Nitrite Negative (Negative) Urine Bilirubin Negative (Negative) Urine Urobilinogen 0.2 (0.2) mg/dL Ur Leukocyte Esterase Negative (Negative) U Hyaline Cast (Auto) 3-5 A (0-2) /LPF Urine Microscopic RBC 3-5 (0-5) /HPF Urine Microscopic WBC 0-2 (0-5) /HPF Ur Epithelial Cells Few (None Seen) /HPF Urine Bacteria None Seen (None Seen) /HPF Urine Culture Reflexed NO (NO) 09/25/23 Range/Units 04:35 WBC (3.98-10.04) x10^3/uL RBC (3.93-5.22) x10^6/uL Hgb (11.2-15.7) g/dL Hct (34.1-44.9) % MCV (79.4-94.8) fL MCH (25.6-32.2) pg MCHC (32.2-35.5) g/dL RDW (11.7-14.4) % Plt Count (182-369) x10^3/uL MPV (9.4-12.3) fL Gran % (34.0-71.1) % Immature Gran % (Auto) (0.001-0.429) % Nucleat RBC Rel Count (0.00-0.2) % Eos # (Auto) (0.04-0.36) x10^3/uL Immature Gran # (Auto) (0.001-0.031) x10^3u/L Absolute Lymphs (auto) (1.18-3.74) x10^3/uL Absolute Monos (auto) (0.24-0.86) x10^3/uL Absolute Nucleated RBC (0.00-0.012) x10^3u/L Lymphocytes % (19.3-51.7) % Monocytes % (4.7-12.5) % Eosinophils % (0.7-5.8) % Basophils % (0.1-1.2) % Absolute Granulocytes (1.56-6.13) x10^3/uL Basophils # (0.01-0.08) x10^3/uL Sodium 140 (135-145) mmol/L Sodium Direct (138-146) mmol/L Potassium 4.0 (3.5-4.9) mmol/L Chloride 110 H (98-109) mmol/L Carbon Dioxide 19 L (24-29) mmol/L Anion Gap 14.5 (5-15) MEQ/L BUN 27 H (7-17) mg/dL Venous BUN (8-26) mg/dL Creatinine 1.21 H (0.6-1.3) mg/dL Estimated GFR 53.9 ML/MIN Glucose 226 H (70-105) mg/dL Calcium 9.3 (8.4-10.2) mg/dL Ionized Calcium (1.12-1.32) mmol/L Total Bilirubin 0.40 (0.2-1.3) mg/dL AST 54 H (14-36) U/L ALT 43 H (0-35) U/L Alkaline Phosphatase 108 (38-126) U/L Serum Total Protein 6.9 (6.3-8.2) g/dL Albumin 3.6 (3.5-5.0) g/dL Urine Color (Yellow) Urine Appearance (Clear) Urine pH (4.6-8.0) Ur Specific [place] (1.005-1.030) Urine Protein (Negative) Urine Glucose (UA) (Negative) mg/dL Urine Ketones (Negative) Urine Blood (Negative) Urine Nitrite (Negative) Urine Bilirubin (Negative) Urine Urobilinogen (0.2) mg/dL Ur Leukocyte Esterase (Negative) U Hyaline Cast (Auto) (0-2) /LPF Urine Microscopic RBC (0-5) /HPF Urine Microscopic WBC (0-5) /HPF Ur Epithelial Cells (None Seen) /HPF Urine Bacteria (None Seen) /HPF Urine Culture Reflexed (NO) Micro Results-Entire Visit: Microbiology 09/23/23 11:40 Blood Culture - Preliminary Blood 09/23/23 11:40 Blood Culture - Preliminary Blood - Radiology Exams Ordered Rad Exams-Entire Visit: Radiology Procedures Category Date Time Status CHEST 1 VIEW (PORTABLE) Stat Exams 09/23/23 11:40 Completed CHEST WITH CONTRAST [CT] Stat Exams 09/23/23 12:49 Completed - Procedures and Test Procedures and Tests throughout Hospitalization: Therapy Orders & Screens 09/23/23 12:22 Respiratory Therapy Assessment DAILY Comment: 09/23/23 15:29 EKG REPEAT IN AM Comment: Oxygen Nasal Cannula 2 lpm Comment: Respiratory Therapy Consult ONCE Comment: Reason For Exam: 09/23/23 15:55 Respiratory Therapy Assessment DAILY Comment: 09/23/23 16:03 Smoking Cessation Education ONCE Comment: Diagnosis: Dyspnea, fever, cough Smoking Status: Current every day smoker How long have you smoked: 20 Y Have you smoked in the past 12 months: Yes Approximately how many cigarettes per day: half pack/daily Do you dip or chew tobacco: No 09/24/23 07:28 Incentive Spirometry ROUTINE Comment: Diagnosis: Dyspnea, fever, cough 09/25/23 07:30 Qualify for Home Oxygen TODAY Comment: Diagnosis: Dyspnea, fever, cough Discharge Exam General Appearance: no apparent distress Neurologic Exam: alert, oriented x 3, cooperative Eye Exam: PERRL Ears, Nose, Throat Exam: normal ENT inspection Neck Exam: normal inspection Respiratory Exam: crackles/rales Cardiovascular Exam: regular rate/rhythm, normal heart sounds Gastrointestinal/Abdomen Exam: soft, normal bowel sounds Pelvic Exam: deferred Rectal Exam: deferred Back Exam: normal inspection Extremity Exam: normal inspection Skin Exam: normal color Final Diagnosis/Problem List - Final Discharge Diagnosis/Problem (1) Sepsis Current Visit: Yes Status: Resolved (2) Pneumonia Current Visit: Yes Status: Acute Code(s): J18.9 - PNEUMONIA, UNSPECIFIED ORGANISM (3) Hyponatremia Current Visit: Yes Status: Resolved Code(s): E87.1 - HYPO-OSMOLALITY AND HYPONATREMIA (4) Insulin resistance Current Visit: Yes Status: Chronic Code(s): E88.819 - INSULIN RESISTANCE, UNSPECIFIED (5) Atrial flutter Current Visit: Yes Status: Chronic Code(s): I48.92 - UNSPECIFIED ATRIAL FLUTTER (6) Acute on chronic renal failure Current Visit: No Status: Acute Code(s): N17.9 - ACUTE KIDNEY FAILURE, UNSPECIFIED; N18.9 - CHRONIC KIDNEY DISEASE, UNSPECIFIED (7) COPD exacerbation Current Visit: No Status: Acute Code(s): J44.1 - CHRONIC OBSTRUCTIVE PU LMONARY DISEASE W (ACUTE) EXACERBATION (8) MINDA (obstructive sleep apnea) Current Visit: No Status: Chronic Code(s): G47.33 - OBSTRUCTIVE SLEEP APNEA (ADULT) (PEDIATRIC) (9) HTN (hypertension) Current Visit: No Status: Chronic Code(s): I10 - ESSENTIAL (PRIMARY) HYPERTENSION - Discharge Disposition: Home, Self-Care Condition: Fair Prescriptions: New Nebulizer Accessories [A.i.r.s. Nebulizer] 1 each MC Q6HPRN PRN 30 Days #1 kit PRN Reason: Shortness Of Breath/Wheezing Albuterol/Ipratropium 3ml Neb* [DUONEB 0.5-3 MG/3 ml Neb] 3 ml IH Q6HPRN PRN 30 Days #120 amp PRN Reason: Shortness Of Breath/Wheezing Guaifenesin 600 mg ER [Mucinex 600MG ER Tabs] 600 mg PO BID 7 Days #14 tablet Nebulizer 1 each MC Q6H PRN PRN 30 Days #1 unit PRN Reason: Shortness Of Breath/Wheezing Continue Metformin HCl 1000 mg [Glucophage 1000 MG] 1,000 mg PO DAILY Levothyroxine Sodium [Synthroid] 137 mcg PO DAILY Hydroxychloroquine Sulfate [Plaquenil] 200 mg PO BID modafiniL [Provigil] 200 mg PO BID Estrogens,Conjugated [Premarin] 0.625 mg PO DAILY Metoprolol Succinate 25 mg Xl* [Toprol-Xl 25MG Tablets] 25 mg PO DAILY Rosuvastatin Calcium 10 mg PO DAILY Esomeprazole Magnesium 20 mg PO DAILY Ergocalciferol (Vitamin D2) [Vitamin D2] 50,000 units PO WEEKLY Bupropion HCl Xl 150 mg [Wellbutrin XL 150 MG] 150 mg PO DAILY Diclofenac Sodium [Voltaren Arthritis Pain] 1 applic TOP DAILY Discontinued Cefdinir 300 mg PO BID Follow up with: ANDREW FRAGOSO MD [Primary Care Provider] -
[2023-09-25] MEDS: DELTASONE 20 MG PO SCH (09:30)
[2023-09-25] MEDS: SODIUM BICARBONATE PO SCH (09:32)
[2023-09-25] MEDS: Sodium Chloride 0.9% 1000 ML 1,000 ML IV SCH (11:09)
[2023-09-25 11:43] VITALS: BP 114/62; PULSE 72; TEMP 98.2
[2023-09-25 12:13] LABS: ALBUMIN 3.5 g/dL (3.5-5.0); ANION GAP 12.2 MEQ/L (5-15); BILIRUBIN,TOTAL 0.3 mg/dL (0.2-1.3); Calcium 9.3 mg/dL (8.4-10.2); Creatinine 1 1.25 mg/dL (0.52-1.04); EST GLOMERULAR FILTRATION RATE 51.9 ML/MIN; Potassium 3.6 mmol/L (3.5-5.1); Total Protein 6.6 g/dL (6.3-8.2)
[2023-09-25 13:34] VITALS: O2SAT 93
[2023-09-30] MEDS ORDERED: VITAMIN D2 PO SCH (10:00)
== END 2023-09-25 14:44 | disposition home or self-care (01) ==
LOC: ED 11:15 → MED SURG 15:25
PROVIDERS: ADMIT Internal Medicine; ATTEND Internal Medicine
DX: A41.9 Sepsis, unspecified organism (principal); J18.9 Pneumonia, unspecified organism; E87.1 Hypo-osmolality and hyponatremia; E88.819 Insulin resistance, unspecified; I48.92 Unspecified atrial flutter; N17.9 Acute kidney failure, unspecified; I12.9 Hypertensive chronic kidney disease with stage 1 through stage 4 chronic kidney disease, or unspecified chronic kidney disease; N18.9 Chronic kidney disease, unspecified; J44.1 Chronic obstructive pulmonary disease with (acute) exacerbation; G47.33 Obstructive sleep apnea (adult) (pediatric); E78.5 Hyperlipidemia, unspecified; E03.9 Hypothyroidism, unspecified; M35.00 Sjogren syndrome, unspecified; R00.0 Tachycardia, unspecified; F17.200 Nicotine dependence, unspecified, uncomplicated; Z79.899 Other long term (current) drug therapy
CPT/HCPCS: 0241U; 36000; 36415; 71045; 71260; 80047; 80053; 81001; 82947; 83605; 83735; 83880; 84484; 85025; 85379; 85610; 87040; 87070; 87641; 93005; 94640; 94760; 96365; 96374; 99285; 99291; Q3014; 93268; J1650; J1956; J2543; J2919; A9270-GY; G0378